=== PATIENT | female | born 1975 | race Caucasian/White ===

== ENCOUNTER 2022-06-18 13:13 | Emergency (ER) | payer BC, SELFPAY ==
[2022-06-18 13:30] VITALS: BP 124/103; PULSE 70; RESP 16; O2SAT 97; BMI 19.7
--- NOTE | 2022-06-18 13:49 | ED_ITS ---
HPI - Headache General Chief Complaint: Headache/Migraine Stated Complaint: Migraine Time Seen by Provider: 06/18/22 13:19 History of Present Illness HPI Narrative: This 46-year-old female comes in reporting migraine headache that began 3 days ago. She states that she gets migraines occasionally and this 1 is not responding to medications she uses at home. She did use Imitrex without any relief. She denies having any neurologic deficits. She does have sensitivity to light and some nausea but has not had any vomiting. She states that she has been unable to sleep at night because of the headache pain. Related Data Home Medications Medication Instructions Recorded Confirmed lisinopril 20 2 tab PO DAILY 06/18/22 06/18/22 mg-hydrochlorothiazide 25 mg tablet propranolol 120 mg capsule,24 120 mg PO Q24H 06/18/22 06/18/22 hr,extended release sumatriptan succinate 50 mg tablet 50 mg PO Q2H 06/18/22 06/18/22 Previous Rx's Medication Instructions Recorded ketorolac 10 mg tablet 10 mg PO Q8H 5 days #15 tabs 06/18/22 Allergies Allergy/AdvReac Type Severity Reaction Status Date / Time Penicillins Allergy Severe Anaphylaxis Verified 06/18/22 13:29 Review of Systems Status of ROS: Reports: 10 or more systems reviewed and unremarkable except as noted in History and below Narrative: Constitutional: No fevers, no weight gain or loss. Eyes: No discharge. No vision changes. HENT: No congestion, no sore throat, no ear pain. Cardiovascular: No chest pain, no palpitations. Respiratory: No shortness of breath, no wheezes, no cough. Gastrointestinal: No abdominal pain, no vomiting, no diarrhea. She reports nausea. Genitourinary: No dysuria, no hematuria. Musculoskeletal: Normal range of motion. Skin: No rashes, no pruritis. Neurological: No dizziness, weakness, sensory change, speech change. Light sensitivity. Endo/Heme/Allergies: No bruising or bleeding. No polydipsia. Pysch: no suicidality, no anxiety, no insomnia. All other systems reviewed and are negative. PFSH PFS Social History Smoking Status: Former smoker Second hand tobacco smoke exposure: No How often do you have a drink containing alcohol: monthly or less How often do you have six or more drinks on one occasion: Never AUDIT-C Alcohol total score: 1 Non-prescribed substance use: denies use service: No Exam Narrative: Exam Narrative: Constitutional: Well-developed, well-nourished, no acute distress. HEENT: Normocephalic, atraumatic. Neck: Normal range of motion. Nontender. Supple. Heart: Regular. No murmurs. Normal rate. Intact distal pulses. Lungs: Clear to auscultation. No chest discomfort. No wheezes, rhonchi, or rales. Abdomen: Normal bowel sounds. Nontender. No rebound tenderness. Genitalia: Deferred. Back: No midline tenderness. Normal range of motion. Extremities: Normal range of motion. No injury. Skin: Intact. No rash. Warm. No erythema or pallor. Neurologic: No altered sensation. No weakness. Alert and oriented. Psychiatric: No suicidality. No anxiety or depression. No insomnia. Nursing notes and vitals signs are reviewed. Const: Vital Signs, click to edit/add: Vital Signs - 24 hr 06/18/22 13:30 Pulse Rate [Pulse Oximeter] 70 Respiratory Rate 16 Blood Pressure [Ri t Upper Arm] 124/103 H Pulse Oximetry 97 Oxygen Delivery Me thod Room Air Course Vital Signs Vital signs: Initial Vital Signs Temperature Source Temporal Artery Scan 06/18/22 13:30 Pulse Rate 70 06/18/22 13:30 Pulse Rhythm 06/18/22 13:30 Respiratory Rate 16 06/18/22 13:30 Blood Pressure 124/103 H 06/18/22 13:30 Blood Pressure Mean 110 06/18/22 13:30 Blood Pressure Position Sitting 06/18/22 13:30 Pulse Oximetry 97 06/18/22 13:30 Oxygen Delivery Method 06/18/22 13:30 Vital Signs Pulse Rate 70 06/18/22 13:30 Respiratory Rate 16 06/18/22 13:30 Blood Pressure 124/103 H 06/18/22 13:30 Pulse Oximetry 97 06/18/22 13:30 Oxygen Delivery Method 06/18/22 13:30 Pulse Rate 70 06/18/22 13:30 Respiratory Rate 16 06/18/22 13:30 Blood Pressure 124/103 H 06/18/22 13:30 Pulse Oximetry 97 06/18/22 13:30 Oxygen Delivery Method 06/18/22 13:30 MDM - Headache MDM Narrative Medical decision making narrative: This patient comes in with a typical migraine headache but yet is not improving with her normal home treatments. She is not showing any neurologic deficits or signs or symptoms of any more troubling cause for her headache. An IV was estab lished where she received Toradol 30 mg, Benadryl 50 mg, and Zofran 4 mg. This brought sufficient relief to her headache. She is okay to be discharged home. She did receive a prescription for some tablets of Toradol and a return to work note. Discharge Plan Discharge Clinical Impression: Migraine Condition: Improved Instructions: Migraine Headache (ED) Additional Instructions: Take medication as needed and indicated. Follow up with MD or return if worsening. Prescriptions: New ketorolac 10 mg tablet 10 mg PO Q8H 5 Days Qty: 15 0RF No Action sumatriptan succinate 50 mg tablet 50 mg PO Q2H Label Comments: TAKE 1 TABLET BY MOUTH NEEDED AT ONSET OF HEADACHE, MAY REPEAT EVERY 2 HOURS. MAX 200MG PER 24 HOURS. lisinopril-hydrochlorothiazide 20-25 mg tablet 2 tab PO DAILY Label Comments: TAKE 2 TABLETS BY MOUTH ONCE DAILY propranolol 120 mg capsule,extended release 24 hr 120 mg PO Q24H Label Comments: TAKE 1 CAPSULE BY MOUTH ONCE DAILY Follow Up/Referrals: Ashlee Preston MD [Primary Care Provider] - Stand Alone Forms: [email or web address] Info Instructions
[2022-06-18] MEDS: ONDANSETRON 2 MG/ML inj 4 MG IVP (14:12)
[2022-06-18] MEDS: KETOROLAC 30 MG/ML inj IVP (14:12)
[2022-06-18] MEDS: diphenhydrAMINE 50 MG/ML inj IVP (14:12)
[2022-06-18 15:30] VITALS: BP 129/95; PULSE 66; RESP 18; O2SAT 98
== END 2022-06-18 15:47 | disposition home or self-care (01) ==
PROVIDERS: Emergency Provider Emergency Medicine Emergency Medical Services; PCP Emergency Medicine
DX: G43.909 Migraine, unspecified, not intractable, without status migrainosus (principal)
CPT/HCPCS: 96374; 96375; 99284; J1200; J1885; J2405

== ENCOUNTER 2023-05-23 11:24 | Outpatient (CLI) | payer SELFPAY | END 2023-05-23 11:25 | disposition home or self-care (01) | LOC: LKVREF 11:26 | PROVIDERS: PCP Emergency Medicine; Visit Provider Emergency Medicine | DX: I10 Essential (primary) hypertension (principal) | CPT/HCPCS: 80048 ==

== ENCOUNTER 2024-02-07 11:47 | Outpatient (CLI) | payer SELFPAY | END 2024-02-07 11:48 | disposition home or self-care (01) | PROVIDERS: PCP Emergency Medicine; Visit Provider Emergency Medicine | DX: Z13.220 Encounter for screening for lipoid disorders (principal); I10 Essential (primary) hypertension | CPT/HCPCS: 80048; 80061 ==

== ENCOUNTER 2024-03-07 14:25 | Outpatient (CLI) | payer SELFPAY | END 2024-03-07 14:26 | disposition home or self-care (01) | LOC: NFLDREF 03-25 08:11 | PROVIDERS: PCP Emergency Medicine; Referring Provider Emergency Medicine; Visit Provider Emergency Medicine | DX: E87.5 Hyperkalemia (principal) | CPT/HCPCS: 84132 ==

== ENCOUNTER 2024-11-21 22:02 | Observation (INO) | payer MEDICAID, SELFPAY ==
[2024-11-21] VITALS (9 sets, daily range): BP systolic 107–136; BP diastolic 86–116; PULSE 77–86; RESP 18; O2SAT 95–98
--- OUTSIDE RECORDS SUMMARY | 2024-11-21 22:03 | XMS_ITS | Clinical Summary ---
Author Organization [email or web address] [facility] Address [place], [place] [address] Care Team Providers Care Master Control Operator Name Role Phone Ashlee Preston MD Primary Care Provider [phone] Allergies Active Allergy Reactions Criticality Noted Date Comments Codeine Itching 06/18/2007 Prochlorperazine Seizures 04/21/2005 Penicillins Anaphylaxis High 04/21/2005 Hydrocodone-Acetaminophen Vomiting 03/11/2013 Medications MEDROXYPROGESTER ONE (CONTRACEPTIVE) 150 MG/ML IM SUSP inject 1 milliliter (150 mg) by intramuscular route every 3 months 1 0 06/12/20 07 Active albuterol HFA (PRO-AIR,VENTOLI N,PROVENTIL) 90 mcg/actuation inhalerIndicatio ns:Cough Inhale 1 Puff by mouth every 4 hours if needed. 1 Inhaler 0 02/21/20 13 Active lisinopril (PRINIVIL; ZESTRIL) 20 mg tabletIndication s:Unspecified essential hypertension Take 2 tablets by mouth once daily. 180 tablet 3 04/08/20 13 Active triamcinolone (ARISTOCORT; KENALOG) 0.1 % creamIndications :Rash Apply topically to affected area(s) 3 times daily. To legs 1 Tube 0 04/08/20 13 Active hydrochlorothiaz america (HCTZ) 25 mg tablet Take 1 tablet by mouth once daily. 30 tablet 0 04/11/20 13 Active metoprolol (TOPROL XL) 50 mg Sustained-Releas e tabletIndication s:Unspecified essential hypertension Take 1 tablet by mouth once daily. 90 tablet 1 04/14/20 13 Active oxyCODONE-acetam inophen, 5-325 mg, (PERCOCET) per tablet Take 1-2 tablets by mouth every 4 hours if needed for Pain. Max acetaminophen dose: 4000mg in 24 hrs. 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 Tobacco use disorder 06/12/2007 Dysuria 06/28/2004 Unspecified disorder of urethra and urinary trac t 06/28/2004 SCREENING FOR MALIGNANT NEOPLASM, CERVIX 002 CALCULUS, URINARY NOS 05/01/2001 CONTRACEPTIVE PRESCRIPTION, ORAL AGENT 1 PYELONEPHRITIS, ACUTE NOS 04/03/2001 DISORDER, DEPRESSIVE NEC 03/20/2001 HYPERTENSION, ESSENTIAL NOS 03/20/2001 DIARRHEA NOS 03/20/2001 ABNORMAL FINDINGS, ELEVATED BP W/O HTN 1 VAGINITIS NOS 10/29/2000 RASH, OTH NONSPECIFIC SKIN ERUPTION 10/29/2000 ACL TEAR, LEFT KNEE Resolved Problems Problem Noted Date Diagnosed Date Resolved Date PYELONEPHRITIS 02/23/2004 03/08/2004 BACK ACHE 05/01/2001 SPRAIN/STRAIN, ANKLE 001 Immunizations Name Administration Dates Next Due Td (Age >=7 Years) 10/22/2006 Family History Medical History Relation Name Comments Hypertension Father Asthma Mother Diabetes Mother and asthma; sib lings also have asthma; Father- medical history unknown Relation Name Status Comments Father Mother Social History Tobacco Use Types Packs/Day Years Used Date Smoking Tobacco: Former Cigarettes Q uit: 06/20/2012 Smokeless Tobacco: Never Alcohol Use Standard Drinks/Week Comments Yes 1.7 (1 standard drink = 0.6 oz p ure alcohol) 6 drinks per month Social Connections Answer Date Recorded Frequency of Communication with Friends and Fami ly Not on file 10/22/2021 Financial Resource Strain Answer Date R ecorded Difficulty of Paying Living Expenses Not on file 10/22/2021 Difficulty of Paying Living Expenses Not on file 10/22/2021 Comments No Sex and Gender Information Value Date Recorded Sex Assigned at Not on file 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 Gender Identity Not on file Sexual Orientation Not on file Occupation Industry Job Start Date Job End Date Not on file Not on file Not on file Not on file 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 Not on file Not on file Obstetrics History Para Term AB IAB SAB Ectopic Multiple Livin g Live Births 0 0 0 0 0 0 0 0 0 0 Last Filed Vital Signs Vital Sign Reading Time Taken Comments Blood Pressure 146/104 04/17/2013 3:00 PM CDT Pulse 78 04/17/2013 3:00 PM CDT Temperature 36.3 C (97.4 F) 04/17/2013 12:59 PM CDT Respiratory Rate 18 04/17/2013 3:00 PM CDT Oxygen Saturation 98% 04/17/2013 3:00 PM CDT Inhaled Oxygen Concentration - - Weight 50 kg (110 lb 3.7 oz) 04/17/2013 10:21 AM CDT Height 170.2 cm (5' 7) 04/14/2013 3:11 PM CDT Body Mass Index 17.26 04/14/2013 3:11 PM CDT Plan of Treatment Health Maintenance Due Date Last Done Comments Tdap 1986 Depression screening for age 12+ 1987 HIV for age 15-65 1990 BMI (ht and wt on same day) for age 18+ 1993 Hepatitis C screening for age 18-79 1993 Tetanus booster 10/22/2016 10/22/2006 Colonoscopy through age 75 2020 Lipids for age 45-75 2020 10/19/2003, 10/19/2003, 05/01/2001 Mammogram for age 45-75 2020 Pap test for age 21-65 08/06/2022 9, 08/06/2019, 06/06/2012 ([facility] Additional history exists COVID-19 vaccine series ( season) 2024 Influenza for age 9-49 06/22/2024 Pneumococcal series for age 6-49 Aged Out No longer eligible based on patient's age to complete this topic Procedures Procedure Name Priority Date/Time Associated Diagnosis Comments SKEIN STRAIGHTENER THIN PREP PAP SCREEN IMAGED Routine 08/06/2019 7:40 AM CDT CHOLESTEROL,TOTAL Routine 10/19/2003 9:1 0 AM STAVE MACHINE TENDER from Last 3 Months or Most Recently Relevant to Health Maintenance Results * SKEIN STRAIGHTENER THIN PREP PAP SCREEN IMAGED (08/06/2019 7:40 AM CDT) Case Report Gynecologic Cytology Report Case: [id number] Authorizing Provider: Jose Miguel Sherman PA-C Collected: 08/06/2019 0740 Ordering Location: [facility] Received: 08/06/2019 1724 First Screen: Jamey Peoples Specimen: SKEIN STRAIGHTENER ThinPrep Vial Screening, Cervical/Vaginal 08/15/2019 2:33 PM CDT [facility] [place] [facility] INTERPRETATION/ RESULT NEGATIVE FOR INTRAEPITHELIAL LESION OR MALIGNANCY (NIL) (none) 08/15/2019 2:33 PM CDT [facility] IMEN ADEQUACY Satisfactory for evaluation Endocervical component present 08/15/2019 2:33 PM CDT [facility] HPV REQUEST HPV and PAP 08/15/2019 2:33 PM CDT [facility] Last Pap Date 03/22/2016 08/15/2019 2:33 PM CDT [facility] Last Pap Result NIL 9 2:33 PM CDT [facility] Automated Review Successful 08/15/2019 2:33 PM CDT [facility] Comment:Specimen processed s uccessfully by automated rackman device, ThinPrep Imaging System, [employer] ANCILLARY TESTING SKEIN STRAIGHTENER HPV Ordered, Please see separate report 08/15/2019 2:33 PM CDT [facility] Note The pap test is a screening technique, not a diagnostic procedure. It is used primarily to screen for squamous cancers and precursor lesions. Published studies have shown that it is subject to both false negative and false positive results. The pap test should not be used as the sole means to diagnose or exclude pre-malignant and malignant lesions. Cytology is screened and interpreted at [facility], Central Laboratory - [address], [place] [address] and [facility] - [address]; [place] [address] and [facility] - [address]; [place] [address] [address] [facility] [address]; [place] [address] 08/15/2019 2:33 PM CDT [facility] Other (Cervical/Vagina l) 08/06/2019 7:40 AM CDT 08/06/2019 5:28 PM CDT Jose Miguel Sherman PA-C PATHOLOGY/CYTOLOGY Final Resu lt [facility] [address] [place] [address], [place] * CHOLESTEROL,TOTAL (10/19/2003 9:10 AM STAVE MACHINE TENDER) CHOLESTEROL,TOT AL 174 110 - 199 mg/dL 10/19/2003 9:10 AM STAVE MACHINE TENDER Narrative 03/30/2004 7:50 PM CDT Ordered by an unspecified provider. Other Clinical Staff CHEMISTRY Final Resul t from Last 3 Months or Most Recently Relevant to Health Maintenance Advance Directives * Full Code (Latest Code Status on File) Date Activated Date Inactivated Comments 04/17/2013 10:16 AM 04/17/2013 5:14 PM * Full Code Date Activated Date Inactivated Comments 04/11/2013 10:30 AM 04/11/2013 4:19 PM Care Teams Master Control Operator Relationship Specialty Start Date End Date Ashlee Preston MD [address] [place] [address] PCP - General Emergency Medicine 05/25/21
--- OUTSIDE RECORDS SUMMARY | 2024-11-21 22:04 | XMS_ITS | Clinical Summary ---
Author Organization [facility] Address [address] [place] [address] Care Team Providers Care Sweeper Operator Highways Name Role Phone Monique [place] MD Primary Care Provider [phone] Allergies Active Allergy Reactions Criticality Noted Date Comments Prochlorperazine Other (See Comments) 7 Grand mal seizure per patient Hydrochlorothiazide 07/30/2017 Penicillins Other (See Comments) 01/19/2016 Throat closes Medications metoclopramide (REGLAN) 10 MG tablet Take 1 tablet (10 mg) by mouth 3 times daily as needed (Nausea or Vomiting) 20 tablet 0 6 Active cholecalciferol 1000 UNITS TABSIndications:Vit diaz D deficiency 1,000 Units by Oral or Feeding Tube route daily 30 tablet 1 7 Active acetaminophen (TYLENOL) 325 MG tabletIndications:N ontraumatic subcortical hemorrhage of right cerebral hemisphere (H),Cerebrovascular accident (CVA) due to embolism of other cerebral artery (H) Take 1 tablet (325 mg) by mouth every 4 hours as needed for mild pain or fever 100 tablet 3 7 Active aspirin 81 MG chewable tabletIndications:C erebrovascular accident (CVA) due to embolism of other cerebral artery (H) Take 1 tablet (81 mg) by mouth daily 36 tablet 11 7 Active lisinopril (PRINIVIL/ZESTRIL) 40 MG tabletIndications:C erebrovascular accident (CVA) due to embolism of other cerebral artery (H),Nontraumatic subcortical hemorrhage of right cerebral hemisphere (H) 1 tablet (40 mg) by Oral or Feeding Tube route daily 30 tablet 11 7 Active CHLORTHALIDONE PO Take 50 mg by mouth daily Active HYDROCHLOROTHIAZIDE PO Take 12.5 mg by mouth daily Active diltiazem (CARTIA XT) 240 MG 24 hr capsule Take 240 mg by mouth daily Active metoprolol (TOPROL-XL) 25 MG 24 hr tabletIndications:M alignant essential hypertension Take 1 tablet (25 mg) by mouth daily 30 tablet 7 Active oxyCODONE IR (ROXICODONE) 5 MG tabletIndications:C hronic nonintractable headache, unspecified headache type Take 1 tablet (5 mg) by mouth every 8 hours as needed for moderate to severe pain 12 tablet 7 Active Active Problems Problem Noted Date Diagnosed Date Headache 08/30/2017 Stroke (cerebrum) 07/20/2017 Intracerebral hemorrhage 06/19/2017 Social History Tobacco Use Types Packs/Day Years Used Date Smoking Tobacco: Never Assessed Alcohol Use Standard Drinks/Week Comments Yes 0 (1 standard drink = 0.6 oz pur e alcohol) Adolescent Education Answer Date Record ed Getting School Help Needed Not on file 07/29 Comments Unknown Sex and Gender Information Value Date Recorded Sex Assigned at Not on file 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 Gender Identity Not on file Sexual Orientation Not on file Last Filed Vital Signs Vital Sign Reading Time Taken Comments Blood Pressure 164/124 06/14/2019 4:24 PM CDT Pulse 74 06/14/2019 4:24 PM CDT Temperature 36.7 C (98.1 F) 06/14/2019 2:44 PM CDT Respiratory Rate 16 06/14/2019 4:24 PM CDT Oxygen Saturation 99% 06/14/2019 4:24 PM CDT Inhaled Oxygen Concentration - - Weight 56.7 kg (125 lb) 06/14/2019 2:44 PM CDT Height 165.1 cm (5' 5) 06/14/2019 2:44 PM CDT Body Mass Index 20.8 06/14/2019 2:44 PM CDT Plan of Treatment Not on file Insurance MEDICA CHOICE Advance Directives For more information, please contact: [phone] * Full Code (Latest Code Status on File) Date Activated Date Inactivated Comments 08/31/2017 12:05 PM 06/14/2019 2:30 PM * Full Code Date Activated Date Inactivated Comments 08/30/2017 7:29 PM 08/31/2017 12:05 PM * Full Code Date Activated Date Inactivated Comments 07/20/2017 3:39 PM 08/30/2017 7:29 PM * Full Code Date Activated Date Inactivated Comments 07/20/2017 1:32 AM 07/20/2017 3:39 PM * Full Code Date Activated Date Inactivated Comments 06/24/2017 12:58 PM 07/20/2017 1:32 AM Care Teams Sweeper Operator Highways Relationship Specialty Start Date End Date Monique Whitehead MD [facility] [address] [place] [address] PCP - General 07/20/17
--- OUTSIDE RECORDS SUMMARY | 2024-11-21 22:04 | XMS_ITS | Referral Summary ---
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
--- NOTE | 2024-11-21 22:13 | CRLHL7_ITS ---
For Patients: As a result of the Century Cures Act, medical imaging exams and procedure reports are released immediately into your electronic medical record. You may view this report before your referring provider. If you have questions, please contact your health care provider. Indication: Left-sided weakness, history of stroke Technique: Noncontrast CT through the head with multiplanar reformats Comparison: CT head performed 07/22/2018 Findings: Brain: No acute hemorrhage. No acute infarct. No significant mass effect or midline shift. No gross evidence of a mass lesion or cerebral edema. Mild chronic microvascular ischemic disease. Ventricles: No acute abnormality appreciated. Orbits, sinuses, mastoids: No acute abnormality appreciated. Mild sinus disease. Calvarium and soft tissues: No acute abnormality appreciated. Impression: No acute intracranial abnormality appreciated. Findings were communicated by telephone to Dr. Laguna at 2300 on 11/21/2024. Please note that all CT scans at this facility use dose modulation, iterative reconstruction, and/or weight-based dosing when appropriate to reduce radiation dose to as low as reasonably achievable. Dictated by Marcos Azar MD @ 11/21/2024 11:02:43 PM (Electronically Signed)
--- NOTE | 2024-11-21 22:13 | CRLHL7_ITS ---
For Patients: As a result of the Century Cures Act, medical imaging exams and procedure reports are released immediately into your electronic medical record. You may view this report before your referring provider. If you have questions, please contact your health care provider. INDICATION: Acute stroke. TECHNIQUE: CTA neck with contrast bolus tracking, 3D angiographic rendering using maximum intensity projection (MIP) and images permanently archived. FINDINGS: There is no significant carotid artery stenosis or dissection. There is no significant vertebral artery stenosis or dissection. The soft tissues of the neck are within normal limits. The cervical spine is in normal alignment. IMPRESSION: No significant carotid or vertebral artery stenosis or dissection. Please note that all CT scans at this facility use dose modulation, iterative reconstruction, and/or weight-based dosing when appropriate to reduce radiation dose to as low as reasonably achievable. Dictated by Akshat Granados MD @ 11/22/2024 11:11:40 AM (Electronically Signed)
--- NOTE | 2024-11-21 22:14 | CRLHL7_ITS ---
For Patients: As a result of the Century Cures Act, medical imaging exams and procedure reports are released immediately into your electronic medical record. You may view this report before your referring provider. If you have questions, please contact your health care provider. INDICATION: Acute stroke. TECHNIQUE: CTA head with contrast bolus tracking, 3D angiographic rendering using maximum intensity projection (MIP) and images permanently archived. FINDINGS: There is an irregularly shaped 6 millimeter left PCOM aneurysm that was not present on the MRA performed on 07/19/2017. There is otherwise normal opacification of the intracranial vasculature. There is no large vessel occlusion or significant intracranial stenosis. 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 This is a high-risk lesion that warrants embolization in the near future. We would be happy to manage this at the [facility] neurointerventional clinic if desired. This can be arranged by calling our coordinator at [phone]. Akshat Granados MD Neurointerventional Radiology [facility]: [phone] Please note that all CT scans at this facility use dose modulation, iterative reconstruction, and/or weight-based dosing when appropriate to reduce radiation dose to as low as reasonably achievable. Dictated by Akshat Granados MD @ 11/22/2024 11:10:30 AM (Electronically Signed)
--- OUTSIDE RECORDS SUMMARY | 2024-11-21 22:26 | XMS_ITS | Referral Summary ---
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
--- OUTSIDE RECORDS SUMMARY | 2024-11-21 22:26 | XMS_ITS | Clinical Summary ---
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 Gender Identity Not on file Sexual Orientation [...] 08/06/2022 9, 08/06/2019, 06/06/2012 ([facility] of [facility]), Additional history exists COVID-19 vaccine series ( season) 2024 Influenza for age 9-49 06/22/2024 Pneumococcal series for age 6-49 Aged Out No longer eligible based on patient's age to complete this topic Procedures Procedure Name Priority Date/Time Associated Diagnosis Comments CONTACT LENS FITTER THIN PREP PAP SCREEN IMAGED Routine 08/06/2019 7:40 AM CDT CHOLESTEROL,TOTAL Routine 10/19/2003 9:1 0 AM POUNDMASTER from Last 3 Months or Most Recently Relevant to Health Maintenance Results * CONTACT LENS FITTER THIN PREP PAP SCREEN IMAGED (08/06/2019 7:40 AM CDT) Case Report Gynecologic Cytology Report Case: [id number] Authorizing Provider: Jose Miguel Sherman PA-C Collected: 08/06/2019 0740 Ordering Location: [facility] Received: 08/06/2019 1720 First Screen: Jamey Peoples Specimen: CONTACT LENS FITTER ThinPrep Vial Screening, Cervical/Vaginal 08/15/2019 2:33 PM CDT [facility] INTERPRETATION/ RESULT NEGATIVE FOR INTRAEPITHELIAL LESION OR MALIGNANCY (NIL) (none) 08/15/2019 2:33 PM CDT [facility] IMEN ADEQUACY Satisfactory for evaluation Endocervical component present 08/15/2019 2:33 PM CDT [facility] HPV REQUEST HPV and PAP 08/15/2019 2:33 PM CDT [facility] Last Pap Date 03/22/2016 08/15/2019 2:33 PM CDT [facility] Last Pap Result NIL 9 2:33 PM CDT [facility] Automated Review Successful 08/15/2019 2:33 PM CDT [facility] Comment:Specimen processed s uccessfully by automated nurse anesthesia program director device, ThinPrep Imaging System, [employer] ANCILLARY TESTING CONTACT LENS FITTER HPV Ordered, Please see separate report 08/15/2019 2:33 PM CDT [facility] Note The pap test is a [...] lesions. Cytology is screened and interpreted at [facility], Central Laboratory - [address], [place] [address] and [facility] - [address]; [place] [address] and [facility] - [address]; [place] [address] and [facility] [address]; [place] [address] 08/15/2019 2:33 PM CDT [facility]-C ENTRAL LABORATORY Other (Cervical/Vagina l) 08/06/2019 7:40 AM CDT 08/06/2019 5:28 PM CDT Jose Miguel Sherman PA-C PATHOLOGY/CYTOLOGY Final Resu lt [facility]OR[facility]-CENTRAL LABORATORY [address] [place] [address], [place] * CHOLESTEROL,TOTAL (10/19/2003 9:10 AM POUNDMASTER) CHOLESTEROL,TOT AL 174 110 - 199 mg/dL 10/19/2003 9:10 AM POUNDMASTER Narrative 03/30/2004 7:50 PM CDT Ordered by [...] 10:30 AM 04/11/2013 4:19 PM Care Teams Cloth Napping Supervisor Relationship Specialty Start Date End Date Ashlee Preston MD [address] [place] [address] PCP - General Emergency Medicine 05/25/21
--- OUTSIDE RECORDS SUMMARY | 2024-11-21 22:26 | XMS_ITS | Clinical Summary ---
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
[2024-11-21 22:36] LABS: Basophils Absolute Auto 0.07 K/uL (0.00-0.30); Basophils Percent Auto 0.9 % (0.0-3.0); Eosinophils Absolute Auto 0.22 K/uL (0.00-0.50); Eosinophils Percent Auto 2.7 % (0.0-7.0); Hematocrit 43.4 % (33.0-51.0); Hemoglobin* 14.1 gm/dL (12.0-16.0); Immature Granulocytes Abs Auto 0.07 K/uL (0.00-0.30); Immature Granulocytes Pct Auto 0.9 %; Lymphocytes Absolute Auto 1.92 K/uL (0.90-2.90); Lymphocytes Percent Auto 23.8 % (20-44); Mean Corpuscular HGB Conc 33 gm/dL (32-36); Mean Corpuscular Hemoglobin 31 pg (26-34); Mean Corpuscular Volume 96 fL (80-100); Monocytes Percent Auto 8.2 % (0.0-11.0); Neutrophils Absolute Auto 5.13 K/uL (1.7-7.0); Neutrophils Percent Auto 63.5 % (42.0-72.0); Platelet Count* 318 K/uL (140-440); RDW Coefficient of Variation % 13.2 % (11.5-15.5); Red Blood Count 4.51 m/uL (4.00-5.20); White Blood Count* 8.07 K/uL (4.50-11.00)
[2024-11-21 22:36] LABS: Troponin, Point-of-Care* 0.01 ng/ml (0.01-0.04)
[2024-11-21 22:40] LABS: Slide Review Reflex No
[2024-11-21 22:41] LABS: Chloride* 99 mmol/L (96-114); Potassium* 3.8 mmol/L (3.6-5.1); Sodium* 138 mmol/L (135-149)
--- NOTE | 2024-11-21 22:43 | ED_ITS ---
HPI - General Adult General Date Seen: 11/21/24 Chief complaint: Neuro Symptoms/Altered Deficit Stated complaint: poss stroke Time Seen by Provider: 11/21/24 22:13 History of Present Illness HPI narrative: This is a 49-year-old female brought to the ER today by her with concern for headache and stroke symptoms. She does have a past history of migraine headaches and apparently has fairly frequent headaches. She also has a history of strokes, 1 at age 24, and 1 at age 42. She does not know all the details of her previous strokes but apparently had workup through the [facility] at the [facility]. Records indicate that she has had a previous half thalamic hemorrhage. She also apparently has a history of some lacunar infarcts. She also has a history of hypertension. She is a former smoker. Mild intermittent asthma. She is a former alcoholic. She does have frequent headaches. She has had a fairly bad diffuse headache this week, beginning Sunday or Sunday. She does have a long history of migraine so this is not necessarily unusual for her. She had her headache this evening. Her left for his job at 7:00 p.m.. She was neurologically at her baseline at that point. She developed symptoms of left-sided weakness and call ed her around 9:00 p.m.. He came home from work and brought her directly here to the ER. We know for sure her last known well time was 7:00 p.m.. Symptoms started sometime between 7 and 9, probably closer to 9:00 p.m.. She has symptoms of left arm and leg weakness. Also perhaps subtle left facial droop. feels that her speech is at baseline. She still has the headache. Vision is normal. No vomiting. No fever. No known head injury. During conversation with stroke neurologist, Dr. Rowe, she has access to some of the patient's old records. 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 Therefore she is not a candidate for IV thrombolytics. Also apparently has a history of poorly controlled hypertension dating back to age 16, tobacco use, former alcohol use. Also has had a lacunar infarcts in the past. Dr. Rowe does not have records from the patient stroke that occurred at age 24 but presumes it was probably an ischemic infarct. Related Data Previous Rx's ?Medication ?Instructions ?Recorded ketorolac 10 mg tablet 10 mg PO Q8H 5 days #15 tabs 06/18/22 amitriptyline 50 mg tablet 50 mg PO QHS #90 tabs 02/07/24 amlodipine 5 mg tablet 5 mg PO QDAY #90 tabs 02/07/24 epinephrine 0.3 mg/0.3 mL 0.3 mg (0.3 mL) IM .PRN PRN 02/07/24 injection, auto-injector (EpiPen anaphylaxis #2 ea 2-Bhaskar) lisinopril 20 2 tab PO DAILY #180 tabs 02/07/24 mg-hydrochlorothiazide 25 mg tablet propranolol 120 mg capsule,24 120 mg PO Q24H #90 caps 02/07/24 hr,extended release sumatriptan succinate 100 mg tablet See Rx Instructions PO .COMPLEX #9 02/07/24 tabs valacyclovir 500 mg tablet 500 mg PO BID #6 tabs 02/07/24 fluticasone 113mcg-salmeterol 1 inh inhalation BID #1 ea 02/13/24 14mcg/actuation breath act,powder sensor (AirAbakuso Digihaler) albuterol sulfate 90 mcg/actuation 2 puff inhalation Q4-6H PRN 02/22/24 aerosol inhaler shortness of breath or wheezing #8.5 grams montelukast 10 mg tablet 10 mg PO QDAY #90 tabs 05/26/24 Allergies Allergy/AdvReac Type Severity Reaction Status Date / Time Penicillins Allergy Severe Anaphylaxis Verified 02/07/24 11:08 venom-honey bee Allergy Severe Swelling Verified 02/07/24 11:08 of Lip/Tongue/Throat prochlorperazine Allergy Mild Seizure Verified 02/07/24 11:08 Quinolones Allergy Mild Unknown Verified 02/07/24 11:08 Theophyllines Allergy Mild Rash Uncoded 02/07/24 11:08 [facility] Medical History History of acute renal failure ?Z87.448 - Personal history of other diseases of urinary system (ICD-10) History of hemorrhagic cerebrovascular accident (CVA) without residual deficits ?Z86.73 - Personal history of transient ischemic attack (TIA), and cerebral infarction without residual deficits (ICD-10) Former smoker ?Z87.891 - Personal history of nicotine dependence (ICD-10) History of alcoholism ?F10.21 - Alcohol dependence, in remission (ICD-10) Surgical History History of tubal ligation ?Z98.51 - Tubal ligation status (ICD-10) History of repair of anterior cruciate ligament ?Z98.890 - Other specified postprocedural states (ICD-10) History of bilateral inguinal hernia repair ?Z98.890 - Other specified postprocedural states (ICD-10) ?Z87.19 - Personal history of other diseases of the digestive system (ICD-10) History of appendectomy ?Z90.49 - Acquired absence of other specified parts of digestive tract (ICD- 10) Family History Father High blood pressure Brain aneurysm Social History Smoking Status: Former smoker Second hand tobacco smoke exposure: No How often do you have a drink containing alcohol: monthly or less How often do you have six or more drinks on one occasion: Never AUDIT-C Alcohol total score: 1 Non-prescribed substance use: denies use service: No Exam Narrative: Exam Narrative: A- patent. Speaking clearly. Phonation normal. No stridor. B- breathing easily. Lung sounds clear and equal. Oxygen saturation normal on room air C- no active bleeding. Blood pressure stable. Symmetric pulses and cap refill in 4 extremities. D- alert and oriented x3. GCS 15. No focal deficits. Constitutional: Appears well-developed and well-nourished. Alert. Conversant. Non toxic. HENT: Head: Atraumatic. Nose: Nose normal. Mouth/Throat: Oral mucosa is clear and moist. no trismus. Pharynx normal. Tonsils symmetric. No tonsillar enlargement, erythema, or exudate. Eyes: Conjunctivae normal. EOM normal. Pupils equal, round, and reactive to light. No scleral icterus. Neck: Normal range of motion. Neck supple. No tracheal deviation present. Cardiovascular: Normal rate, regular rhythm. No gallop. No friction rub. No murmur heard. Symmetric radial artery pulses Pulmonary/Chest: Effort normal. No stridor. No respiratory distress. No wheezes. No rales. No rhonchi . No tenderness. Abdominal: Soft. Bowel sounds normal. No distension. No mass. No tenderness. No rebound. No guarding. Musculoskeletal: RUE: Normal range of motion. No tenderness. No deformity LUE: Normal range of motion. No tenderness. No deformity RLE: Normal range of motion. No edema. No tenderness. No deformity LLE: Normal range of motion. No edema. No tenderness. No deformity Lymph: No cervical adenopathy. Neurological: Mental status normal. Attention normal. Alert and oriented x3. GCS 15. Memory normal. Speech fluent. Cognition normal. Cranial Nerves intact II-XII except I did not formally test gag or visual acuity. EOMI. Palate elevates symmetrically and tongue protrudes in the midline. Strength: Strength 5/5 on the right side including the deltoid, biceps, triceps, plant supervisor, hip flexors, quad, hamstring, gastrocnemius. Strength is 4+/5 on the left plant supervisor, biceps, triceps. She can lift her left arm and hold it against gravity with some drift. She has 4/5 strength on the left lower extremity. She is barely able to lift her left leg off the mattress and can only hold it for about 2nd against gravity. Finger to nose and coordination normal. Gait not assessed due to left-sided weakness. NIHSS- 7 upon arrival. Skin: Skin is warm and dry. No rash noted. No pallor. Normal capillary refill. Psychiatric: Normal mood. Anxious and tearful. Worried about her recurrent left-sided weakness. intently at her side. Const: Vital Signs, click to edit/add: Vital Signs - 24 hr 11/21/24 22:09 11/21/24 22:11 11/21/24 22:34 Pulse Rate 85 Pulse Rate [Pulse Oximeter] 86 Respiratory Rate 18 Blood Pressure 136/116 H Blood Pressure [Ri ght Upper Arm] 136/116 H Pulse Oximetry 98 98 Oxygen Delivery Me thod Room Air 11/21/24 22:35 11/21/24 22:42 11/21/24 22:45 Pulse Rate 84 78 81 Pulse Rate [Pulse Oximeter] Respiratory Rate Blood Pressure 120/86 109/87 Blood Pressure [Ri ght Upper Arm] Pulse Oximetry 95 97 96 Oxygen Delivery Me thod 11/21/24 22:52 11/21/24 23:00 11/21/24 23:02 Pulse Rate 80 77 79 Pulse Rate [Pulse Oximeter] Respiratory Rate Blood Pressure 107/94 H 111/87 Blood Pressure [Ri ght Upper Arm] Pulse Oximetry 96 96 97 Oxygen Delivery Me thod Course Course ED Course: Code stroke was activated nurses at the time of triage. Immediately room to ER room 8 Patient seen in ER room 8 upon arrival. A performed initial history and physical exam and the patient was sent or stat noncontrast head CT as well as CT angiogram. Phone consultation with Stroke Neurology, Dr. Rowe from [facility]. Using her EMR she was able to get some of the old records from the patient's previous strokes which were actually treated in the [facility]. She did have a right thalamic infarct in 2017. Therefore the patient is not a candidate for IV thrombolytics. Dr. Rowe agrees with obtaining CT angiogram because if there is a large vessel occlusion she may be a candidate for intra-arterial clot retrieval. Recheck-by review of the head CT shows no acute intracranial hemorrhage. I do think there is some old encephalomalacia, possibly from her previous hemorrhage . I do not see any hydrocephalus. Reevaluation(s) Reevaluation #1: Recheck-discussed again with Stroke Neurology. She has been able to review the imaging with Radiology. Head CT is negative. With her history, or concerned about a possible recurrent acute ischemic stroke. Differential would also include possible migraine with neurologic for the symptoms. Dr. Rowe recommends admission here in [place]. MRI tomorrow. I confirmed with our radiology department that MRI is available tomorrow, on the weekend. Dr. Rowe recommends permissive hypertension but limiting systolic blood pressure below 180 due to the risk of potential recurrent hemorrhage. Also aspirin 81 mg. Hold off on full-dose aspirin or other antiplatelet agents because of the patient's history of intracranial hemorrhage. 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 This is not thought to be related to her headache or her acute neurologic symptoms. Does not require immediate intervention. Dr. Rowe recommends urgent but not emergent follow-up in the outpatient setting (next few weeks) with interventional radiology. Reevaluation #2: Recheck discussed with our hospitalist, Dr. Begum who agrees to admit. Recheck the patient. She sitting up in bed. Headache still present but improving. Still has left arm weakness, more significant left leg weakness. Discussed workup so far and plan of care with the patient and her . Also discussed the incidental 5 mm left ICA aneurysm and need for follow-up. They verbalized understanding. Vital Signs Vital signs: Initial Vital Signs Pulse Rate 86 11/21/24 22:09 Respiratory Rate 18 11/21/24 22:09 Blood Pressure 136/116 H 11/21/24 22:09 Blood Pressure Mean 122 H 11/21/24 22:09 Blood Pressure Position Supine 11/21/24 22:09 Pulse Oximetry 98 11/21/24 22:09 Oxygen Delivery Method Room Air 11/21/24 22:09 Vital Signs Pulse Rate 86 11/21/24 22:09 Respiratory Rate 18 11/21/24 22:09 Blood Pressure 136/116 H 11/21/24 22:09 Pulse Oximetry 98 11/21/24 22:09 Oxygen Delivery Method Room Air 11/21/24 22:09 Pulse Rate 79 11/21/24 23:02 Respiratory Rate 18 11/21/24 22:09 Blood Pressure 111/87 11/21/24 23:02 Pulse Oximetry 97 11/21/24 23:02 Oxygen Delivery Method Room Air 11/21/24 22:09 Medications Administered Medications: Discontinued Medications Generic Name Dose Route Start Last Admin Trade Name Bhaskarq PRN Reason Stop Dose Admin Aspirin 81 mg 11/21/24 23:12 11/21/24 23:22 Aspirin 81 Mg Tablet Ec PO 11/21/24 23:13 81 mg ONCE ONE Administration Diphenhydramine HCl 12.5 mg 11/21/24 22:13 11/21/24 22:55 Diphenhydramine 50 Mg/Ml Inj IVP 11/21/24 22:14 12.5 mg ONCE ONE Administration Sodium Chloride 500 mls @ 500 mls/hr 11/21/24 22:13 11/22/24 00:11 0.9 % Sodium Chloride 500 Ml IV 11/21/24 23:12 Infused .Q1H ONE Infusion Metoclopramide HCl 10 mg 11/21/24 22:13 11/21/24 22:59 Metoclopramide Hcl 5 Mg/Ml Inj IVP 11/21/24 22:14 10 mg ONCE ONE Administration Medical Decision Making MDM Narrative Medical decision making narrative: Pleasant but unfortunate 49-year-old female with a history of previous strokes including a thalamic hemorrhage 7 years ago presenting to the ER today with headache ongoing for about 5 days of headache and neurologic symptoms ongoing for about an hour and half or 2 hours prior to arrival. Presentation is concerning for stroke. Stroke team activation was triggered. Stat noncontrast CT and imaging were obtained. Neurology consultation. Given history of ICH she is not a candidate for thrombolytics. She will require admission for neurologic monitoring, MRI (which is not available here in [place] until tomorrow morning). In discussion with Stroke Neurology she will receive baby aspirin for stroke prophylaxis. No other antiplatelets due to risk of ICH. Allow permissive hypertension only up to systolic of 180. Treat if above that to minimize the risk of recurrent ICH. Differential would also include migraine phenomena. Treated her headache here in the ER with some improvement in the pain but no improvement her left-sided weakness. EKG shows sinus rhythm. CBC normal. BMP normal. We did check COVID and influenza swab to look for alternative explanations for headache and is normal. She does not have any cough or shortness of breath. Lab Data Labs: Lab Results 11/21/24 11/21/24 11/21/24 Range/Units 22:14 22:15 22:33 WBC 8.07 (4.50-11.00) K/uL RBC 4.51 (4.00-5.20) m/uL Hgb 14.1 (12.0-16.0) gm/dL Hct 43.4 (33.0-51.0) % MCV 96 (80-100) fL MCH 31 (26-34) pg MCHC 33 (32-36) gm/dL RDW Coeff of Tj 13.2 (11.5-15.5) % Plt Count 318 (140-440) K/uL Neut % (Auto) 63.5 (42.0-72.0) % Lymph % (Auto) 23.8 (20-44) % [place] % (Auto) 8.2 (0.0-11.0) % Eos % (Auto) 2.7 (0.0-7.0) % Baso % (Auto) 0.9 (0.0-3.0) % Neut # (Auto) 5.13 (1.7-7.0) K/uL Lymph # (Auto) 1.92 (0.90-2.90) K/uL [place] # (Auto) 0.70 (0.00-0.90) K/UL Eos # (Auto) 0.22 (0.00-0.50) K/uL Baso # (Auto) 0.07 (0.00-0.30) K/uL Abs Immat Gran (auto) 0.07 (0.00-0.30) K/uL Imm/Tot Granulo (auto) 0.9 % INR 0.95 (0.91-1.10) Sodium 138 (135-149) mmol/L Potassium 3.8 (3.6-5.1) mmol/L Chloride 99 (96-114) mmol/L Carbon Dioxide 24 (20-32) mmol/L Anion Gap 15 (7-15) mEq/L BUN 13 (5-24) mg/dL Creatinine 1.0 (0.5-1.5) mg/dL Estimated GFR 69 ml/min Glucose 114 (60-115) mg/dL Calcium 9.7 (8.4-10.6) mg/dL SARS-CoV-2 (PCR) Negative SARS-CoV-2 (Negative) Influenza Type A (PCR) Negative PCR FLU A (Negative) Influenza Type B (PCR) Negative PCR FLU B (Negative) POC Troponin I 0.01 (0.01-0.04) ng/ml Imaging Data CT scan - head: Attestation: I have reviewed the pertinent imaging results. My impression: No acute bleed. Radiologist's impression: Impression: No acute intracranial abnormality appreciated. Findings were communicated by telephone to Dr. Laguna at 2300 on 11/21/2024. CTA head and neck: Attestation: I have reviewed the pertinent imaging results. Radiologist's impression: Preliminary report, full report to follow. Impression: CTA head: There is a new 5 millimeter left ICA terminus/PCOM aneurysm, not present on 2017 examination. Referral for endovascular treatment recommended. No large vessel occlusion, high-grade stenosis, or additional aneurysm is appreciated. CTA neck: No large vessel occlusion, high-grade stenosis, aneurysm/pseudoaneurysm, or dissection. ECG Data Attestation: I personally reviewed and interpreted this ECG as follows: Interpretation: Normal sinus rhythm Rate: 80 IL: 204. First degree AV block QRS axis: Normal axis. ST segment/T wave: No ST segment elevation or depression QTc: 452 Discharge Plan Discharge Clinical Impression: Stroke, Acute left-sided muscle weakness, Aneurysm of left internal carotid artery
[2024-11-21 22:44] LABS: Anion Gap 15 mEq/L (7-15); Carbon Dioxide* 24 mmol/L (20-32); Estimated Glomerular Filt Rate 69 ml/min
[2024-11-21 22:45] LABS: Blood Urea Nitrogen* 13 mg/dL (5-24); Calcium* 9.7 mg/dL (8.4-10.6); Glucose* 114 mg/dL (60-115)
[2024-11-21 22:52] LABS: INR 0.95 (0.91-1.10); Prothrombin Time 13.2 Seconds
[2024-11-21] MEDS: 0.9 % SODIUM CHLORIDE 500 ML 500 ML IV (22:55)
[2024-11-21] MEDS: diphenhydrAMINE 50 MG/ML inj 12.5 MG IVP (22:55)
[2024-11-21] MEDS: METOCLOPRAMIDE HCL 5 MG/ML INJ 10 MG IVP (22:59)
[2024-11-21] MEDS: ASPIRIN 81 MG TABLET EC PO (23:22)
[2024-11-21 23:28] LABS: PCR FLU A Negative PCR FLU A (Negative); PCR FLU B Negative PCR FLU B (Negative); SARS PCR* Negative SARS-CoV-2 (Negative)
[2024-11-22] VITALS (10 sets, daily range): BP systolic 95–130; BP diastolic 68–96; PULSE 61–96; RESP 16–18; TEMP -14.4–36.8; O2SAT 94–98; BMI 22.9
--- NOTE | 2024-11-22 00:04 | CRLHL7_ITS ---
For Patients: As a result of the Century Cures Act, medical imaging exams and procedure reports are released immediately into your electronic medical record. You may view this report before your referring provider. If you have questions, please contact your health care provider. Indication: Left hemiparesis. Technique: Multiplanar, multisequence MRI of the brain was performed without and with intravenous contrast. Contrast: 12 cc Dotarem. Comparison: CT head 11/21/2024. MR brain 10/02/2017. Findings: The corpus callosum, pituitary gland and clivus appear intact. Mild degenerative change visualized upper cervical spine. Mild low-lying cerebellar tonsils. There is no restricted diffusion. No intracranial hemorrhage. The ventricles are proportionate to the cerebral sulci. The 4th ventricle appears midline. The basal cisterns appear patent. No abnormal extra-axial fluid collection identified. Mild parenchymal volume loss. Moderate scattered T2 FLAIR hyperintense foci within the subcortical and periventricular white matter, favored to represent chronic ischemic microvascular disease. Stable hemosiderin deposition with encephalomalacia and gliosis of the right thalamus, extending into the walters radiata. There is no intracranial mass, abnormal mass-effect or midline shift identified. No abnormal enhancement. Mild paranasal sinus mucosal disease. Impression: 1. No acute/subacute infarct. 2. Stable moderate chronic ischemic microvascular disease. 3. Stable sequela of chronic hemorrhagic insult involving the right thalamus, extending into the walters radiata. Dictated by Jesus Alberto Prado MD @ 11/22/2024 10:16:52 AM (Electronically Signed)
--- NOTE | 2024-11-22 00:06 | P.IMHP_ITS ---
Hospitalist- H&P: HPI History of Present Illness Date Seen: 11/22/24 Chief complaint: poss stroke Narrative: Mary Gotti is a 49 year old woman presents to the emergency department today accompanied by her with complaint of headache and new left-sided weakness. Longstanding history of migraine headaches. Indicates she has migraine headaches frequently. Also longstanding history of strokes. First stroke occurred at age 24 presumably ischemic. Second major stroke occurred at age 42, hemorrhagic thalamic stroke. Is not anticoagulated or on antithrombotic therapy because of the history of the previous hemorrhagic thalamic stroke. Also has h istory of other lacunar strokes. Has longstanding hypertension. History of tobacco use disorder, no longer actively smoking. History of alcohol use disorder, rarely consumes alcoholic beverages any longer. Headache since Sunday of this week. Not necessarily unusual for her. Her left for work around 7 this evening, at which time she was neurologically at baseline. Subsequently she developed left-sided weakness and called her around 9 this evening. Left leg weakness is greater than the left arm weakness. Also has slight left facial droop with mild slurred speech. She thinks perhaps at the onset she might have had some blurred vision but that has since resolved. No other signs or symptoms. No recent trauma, injury, illness, fever. Review of Systems Status of ROS: Reports: 6 or more systems reviewed and unremarkable except as noted in History and below [facility] Medical History History of acute renal failure ?Z87.448 - Personal history of other diseases of urinary system (ICD-10) History of hemorrhagic cerebrovascular accident (CVA) without residual deficits ?Z86.73 - Personal history of transient ischemic attack (TIA), and cerebral infarction without residual deficits (ICD-10) Former smoker ?Z87.891 - Personal history of nicotine dependence (ICD-10) History of alcoholism ?F10.21 - Alcohol dependence, in remission (ICD-10) Surgical History History of tubal ligation ?Z98.51 - Tubal ligation status (ICD-10) History of repair of anterior cruciate ligament ?Z98.890 - Other specified postprocedural states (ICD-10) History of bilateral inguinal hernia repair ?Z98.890 - Other specified postprocedural states (ICD-10) ?Z87.19 - Personal history of other diseases of the digestive system (ICD-10) History of appendectomy ?Z90.49 - Acquired absence of other specified parts of digestive tract (ICD- 10) Family History Father High blood pressure Brain aneurysm Social History Smoking Status: Former smoker Second hand tobacco smoke exposure: No How often do you have a drink containing alcohol: monthly or less How often do you have six or more drinks on one occasion: Never AUDIT-C Alcohol total score: 1 Non-prescribed substance use: denies use service: No Meds Home Medications and Allergies Allergies Allergy/AdvReac Type Severity Reaction Status Date / Time Penicillins Allergy Severe Anaphylaxis Verified 02/07/24 11:08 venom-honey bee Allergy Severe Swelling Verified 02/07/24 11:08 of Lip/Tongue/Throat prochlorperazine Allergy Mild Seizure Verified 02/07/24 11:08 Quinolones Allergy Mild Unknown Verified 02/07/24 11:08 Theophyllines Allergy Mild Rash Uncoded 02/07/24 11:08 Exam Narrative: Exam Narrative: I 1st examined her in the emergency department. Her sitting next to her. She appears comfortable no acute distress. From the, articulate, cooperative. Alert and oriented x4. Class co coma scale 15. Vision and hearing are normal. External auditory canals are clear tympanic membranes are normal. Midline nasal septum. Oropharynx benign and symmetric. Dentition in fair repair. Tongue protrudes midline. Normal gag reflex. Voice seems mildly slurred. Patient unaware. states he thinks this is new. Conjugate gaze. Extraocular muscles are intact. Pupils are equally round and reactive to light and accommodation. No icterus or conjunctival injection. Neck is supple. Midline trachea. No carotid bruits. No JVD or hepatic jugular reflux. Lungs are clear to auscultation without wheezing, rhonchi, or rales. Chest wall excursions are full. No CVA tenderness. Spine is midline. Heart tones with regular rhythm, normal S1-S2, without murmur, gallop, rub. PMI not laterally displaced. Abdomen is thin with active bowel sounds, soft, nontender. No rebound or guarding. No organomegaly or masses. Extremities without edema. Diffusely hyperactive left deep tendon reflexes in upper and lower extremities. Does not have a Babinski. Strength testing of right upper and lower extremities is normal. Strength testing of left upper extremity is mildly but certainly perceptibly weaker than on the right. Strength testing of left lower extremity is mildly but certainly perceptibly weaker than on the right. Rapid alternating movement on the left is more clumsy than on the right. Does have mild drifting on the left compared to the right upper extremity. Const: Vital Signs, click to edit/add: Vital Signs - 24 hr 11/21/24 22:09 11/21/24 22:11 11/21/24 22:34 Pulse Rate 85 Pulse Rate [Pulse Oximeter] 86 Respiratory Rate 18 Blood Pressure 136/116 H Blood Pressure [Ri ght Upper Arm] 136/116 H Pulse Oximetry 98 98 Oxygen Delivery Me thod Room Air 11/21/24 22:35 11/21/24 22:42 11/21/24 22:45 Pulse Rate 84 78 81 Pulse Rate [Pulse Oximeter] Respiratory Rate Blood Pressure 120/86 109/87 Blood Pressure [Ri ght Upper Arm] Pulse Oximetry 95 97 96 Oxygen Delivery Me thod 11/21/24 22:52 11/21/24 23:00 11/21/24 23:02 Pulse Rate 80 77 79 Pulse Rate [Pulse Oximeter] Respiratory Rate Blood Pressure 107/94 H 111/87 Blood Pressure [Ri ght Upper Arm] Pulse Oximetry 96 96 97 Oxygen Delivery Me thod Hospitalist - H&P: Result Labs Labs: Short CBC 11/21/24 Range/Units 22:15 WBC 8.07 (4.50-11.00) K/uL Hgb 14.1 (12.0-16.0) gm/dL Hct 43.4 (33.0-51.0) % Plt Count 318 (140-440) K/uL BMP 11/21/24 22:15 Sodium 138 Potassium 3.8 Chloride 99 Carbon Dioxide 24 BUN 13 Creatinine 1.0 Glucose 114 Calcium 9.7 ECG ECG interpretation date: 11/21/24 Interpretation: Normal sinus rhythm Imaging CT scan - head: Radiologist's impression: No acute stroke. CT angiogram of head and neck: Radiologist's impression: Radiologist report not yet available. Our physician in the emergency department spoke with the radiologist and was informed that there is no major vessel stenosis. Incidentally noted was a left internal carotid artery 5 mm aneurysm that will require additional outpatient assessment and possible intervention. Assessment and Plan Assessment and plan (1) Acute left-sided muscle weakness: Problem comment: - differential diagnosis include new stroke, migraine equivalent, expression of prior hemorrhagic stroke - Dr. Rowe, stroke neurologist, recommended aspirin 81 mg daily, not a candidate for thrombolytics because of prior hemorrhagic stroke, obtain MR scan of the brain and reconsult in the morning after results are available. - admit for observation, telemetry, echocardiogram, serial neurologic assessments, physical therapy, occupational therapy Status: Acute (2) Aneurysm of left internal carotid artery: Problem comment: - Dr. Rowe, stroke neurologist, recommends outpatient assessment for this for due consideration for possible embolization of this before it ruptures Status: Acute (3) History of hemorrhagic cerebrovascular accident (CVA) without residual deficits: Status: Acute (4) Essential hypertension: Problem comment: Dxed teenage years, history of medication non-compliance, sp 2 strokes due to HTN 07/08 ECHO 12/10 showed mild concentric LVH - Dr. Rowe recommends trying to keep systolic blood pressure less than 180 mmHg for now Status: Acute (5) Chronic migraine: Problem comment: Amitriptyline, propanolol Status: Acute (6) Cerebrovascular accident (CVA): Problem comment: Ischemic stroke putamen 06/2017, hemorrhagic stroke thalamic 05/2017, and left sided putamen stroke/left sided weakness related to ischemic stroke due to small-vessel occlusion 07/08 Status: Acute (7) Stage 2 hypertension: Problem comment: Renal Ultraound -20 17 while hospitalized [facility], adosterone level normal Status: Acute (8) Former smoker: Problem comment: quit 2015 Status: Acute (9) History of alcoholism: Problem comment: Quit drinking greater than 3 years ago Status: Acute (10) Hypertriglyceridemia: Problem comment: Recommend treatment due to history of stroke Status: Acute Plan 1. Reviewed impression with patient and 2. Discuss recommendations with patient and 3. Answered their questions 4. They are agreeable with above stated plans and recommendations Total Time Spent Total Time Spent: 70 minutes
[2024-11-22] MEDS: ACETAMINOPHEN 325 MG TABLET 650 MG PO ×2 (00:40→06:11)
[2024-11-22] MEDS: AMITRIPTYLINE 25 MG TABLET 50 MG PO (00:40)
[2024-11-22] MEDS: OXYCODONE 5 MG TABLET PO ×2 (03:08→10:20)
--- NOTE | 2024-11-22 06:16 | PC.NURSE ---
Pt arrived to the floor at 0000 via wheelchair with . pt A&O pleasant and cooperative. pt complains of migraine rating pain 6-8/10 overnight. see eMAR for interventions. VSS. left sided weakness recorded. left sided weakness at baseline. pt reports weakness at baseline. neuros otherwise remarkable. up w/ SBA to the bathroom. pt denies nausea overnight. using call light appropriately.
[2024-11-22 07:03] LABS: Cholesterol* 184 mg/dL (90-199)
[2024-11-22 07:04] LABS: HDL Cholesterol* 70 mg/dL (>=50); LDL Cholesterol Calculated 81 mg/dL (<100); Triglycerides* 165 mg/dL (40-149)
[2024-11-22] MEDS: AMLODIPINE 5 MG TABLET PO (08:56)
[2024-11-22] MEDS: hydroCHLOROthiazide 25 MG TABLET 50 MG PO (08:56)
[2024-11-22] MEDS: lisinopriL 20 MG TABLET 40 MG PO (08:56)
[2024-11-22] MEDS: MONTELUKAST 10 MG TABLET PO (08:57)
[2024-11-22] MEDS: SODIUM CHLORIDE 0.9 % (FLUSH) 10 ML SYRINGE 5 ML IVF (08:57)
[2024-11-22] MEDS: ASPIRIN 81 MG TABLET EC PO (08:57)
[2024-11-22] MEDS: METOCLOPRAMIDE HCL 5 MG/ML INJ 10 MG IVP (12:50)
[2024-11-22] MEDS: ACETAMINOPHEN 500 MG TABLET 1000 MG PO (12:50)
[2024-11-22] MEDS: dexAMETHasone 10 MG/ML inj IVP (14:17)
--- NOTE | 2024-11-22 15:04 | PM.DS1 ---
DS: Providers Provider Date Seen: 11/22/24 Date of admission: 11/21/24 23:46 Primary care physician: Ashlee Preston Admitting Clinician: Adriel Begum MD Consults: 11/21/24 23:59 Consult to Physical Therapy [CONS] Routine Comment: Reason(s) for PT Consult:: Evaluate and Treat Any Restrictions?:: No Restrictions 11/22/24 00:02 Consult to Occupational Therapy [CONS] Routine Comment: Reason(s) for OT Consult:: Evaluate and Treat Any Restrictions?:: No Restrictions Attending Physician on discharge: Tiffanie Soto MD DS: Diagnosis Discharge Diagnosis (1) Acute left-sided muscle weakness: Status: Acute Problem details: - Differential diagnosis include migraine equivalent, expression of prior hemorrhagic stroke (Stroke recrudescence). Acute stroke was ruled out - Dr. Rowe, stroke neurologist, recommended aspirin 81 mg daily, not a candidate for thrombolytics because of prior hemorrhagic stroke. - MR scan of the brain did not show any acute or subacute stroke. - echocardiogram unremarkable -physical therapy, occupational therapy as an outpatient. -November 22 neuro tele are okay with patient going home. (2) Aneurysm of left internal carotid artery: Status: Acute Problem details: - Dr. Rowe, stroke neurologist, recommends outpatient assessment for this for due consideration for possible embolization of this before it ruptures (3) History of hemorrhagic cerebrovascular accident (CVA) without residual deficits: Status: Chronic (4) Essential hypertension: Status: Acute Problem details: Dxed teenage years, history of medication non-compliance, sp 2 strokes due to HTN 07/08 ECHO 12/10 showed mild concentric LVH - Dr. Rowe recommends trying to keep systolic blood pressure less than 180 mmHg for now (5) Chronic migraine: Status: Acute Problem details: Amitriptyline, propanolol (6) Cerebrovascular accident (CVA): Status: Acute Problem details: Ischemic stroke putamen 06/2017, hemorrhagic stroke thalamic 05/2017, and left sided putamen stroke/left sided weakness related to ischemic stroke due to small-vessel occlusion 07/08 (7) Stage 2 hypertension: Status: Acute Problem details: Renal Ultraound - while hospitalized [facility], adosterone level normal (8) Former smoker: Status: Acute Problem details: quit 2015 (9) History of alcoholism: Status: Acute Problem details: Quit drinking greater than 3 years ago (10) Hypertriglyceridemia: Status: Acute Problem details: Recommend treatment due to history of stroke DS: Summary Hospital Course Hospital Course: Pt w PMHx of CVA, migraine SWAN and asthma who presented w/ acute lt sided weakness. Neurotele consulted. MR scan of the brain did not show any acute or subacute stroke and thus Acute stroke was ruled out. Pt's weakness improved during her stay, and is thought to be 2/2 either a migraine equivalent as pt was having SWAN and nausea, or it could be 2/2 expression of prior hemorrhagic stroke (Stroke recrudescence). Dr. Rowe, stroke neurologist, recommended aspirin 81 mg daily, not a candidate for thrombolytics because of prior hemorrhagic stroke. echocardiogram unremarkable Pt had physical therapy & occupational therapy eval & Tx and will cont as an outpatient. Pt needs to follow-up with your primary care physician within 1-2 weeks to discuss and then follow-up for an aneurysm that was found at the left internal carotid artery + visiting neurology/interventional neurologist if needed. Sumatriptan treatment for migraine is contraindicated with patients with history of stroke pt needs to discuss this with primary care physician and neurology if needed. Ordered Tylenol, dexamethasone and antiemetics to Tx migraine SWAN. Status at Discharge Overall status at discharge: patient is progressing back to baseline Time Spent with Patient Time attestation: Total time spent providing and/or coordinating discharge services: 45 min Exam Narrative: Exam Narrative: GEN: comfortable, NAD H&N: No facial drooping Neuro: No drifting or weakness noted when comparing lt and rt LE & UE. Speech might be slightly slurred. CVS: RRR, NL S1 S2 Normal mood & affect Const: Vital Signs, click to edit/add: Vital Signs - 24 hr 11/21/24 22:09 11/21/24 22:11 11/21/24 22:34 Temperature Pulse Rate 85 Pulse Rate [Pulse Oximeter] 86 Respiratory Rate 18 Blood Pressure 136/116 H Blood Pressure [Le ft Arm] Blood Pressure [Ri ght Upper Arm] 136/116 H Pulse Oximetry 98 98 Oxygen Delivery Me thod Room Air 11/21/24 22:35 11/21/24 22:42 11/21/24 22:45 Temperature Pulse Rate 84 78 81 Pulse Rate [Pulse Oximeter] Respiratory Rate Blood Pressure 120/86 109/87 Blood Pressure [Le ft Arm] Blood Pressure [Ri ght Upper Arm] Pulse Oximetry 95 97 96 Oxygen Delivery Me thod 11/21/24 22:52 11/21/24 23:00 11/21/24 23:02 Temperature Pulse Rate 80 77 79 Pulse Rate [Pulse Oximeter] Respiratory Rate Blood Pressure 107/94 H 111/87 Blood Pressure [Le ft Arm] Blood Pressure [Ri ght Upper Arm] Pulse Oximetry 96 96 97 Oxygen Delivery Me thod 11/22/24 00:40 11/22/24 01:02 11/22/24 01:02 Temperature 6 F L 98.3 F Pulse Rate 64 Pulse Rate [Pulse Oximeter] 66 Respiratory Rate 16 Blood Pressure Blood Pressure [Le ft Arm] 130/96 H Blood Pressure [Ri ght Upper Arm] Pulse Oximetry 98 Oxygen Delivery Me thod Room Air 11/22/24 01:13 11/22/24 03:06 11/22/24 03:27 Temperature 97.8 F Pulse Rate Pulse Rate [Pulse Oximeter] 67 67 Respiratory Rate 16 18 Blood Pressure Blood Pressure [Le ft Arm] 101/70 Blood Pressure [Ri ght Upper Arm] Pulse Oximetry 98 96 Oxygen Delivery Me thod Room Air Room Air 11/22/24 07:00 11/22/24 08:00 11/22/24 08:00 Temperature 97.9 F Pulse Rate 61 Pulse Rate [Pulse Oximeter] 67 Respiratory Rate 18 18 Blood Pressure Blood Pressure [Le ft Arm] 104/68 Blood Pressure [Ri ght Upper Arm] Pulse Oximetry 96 96 Oxygen Delivery Me od Room Air Room Air 11/22/24 08:54 Temperature Pulse Rate Pulse Rate [Pulse Oximeter] 67 Respiratory Rate Blood Pressure Blood Pressure [Le ft Arm] Blood Pressure [Ri ght Upper Arm] Pulse Oximetry Oxygen Delivery Me thod DS: Data Data Completed and Pending Pending studies at discharge: F/up for the Lt IC aneurysm as an outpt Labs on day of discharge: Labs from last 24 hours 11/22/24 11/21/24 11/21/24 05:50 22:33 22:15 WBC 8.07 RBC 4.51 Hgb 14.1 Hct 43.4 MCV 96 MCH 31 MCHC 33 RDW Coeff of Jt 13.2 Plt Count 318 Neut % (Auto) 63.5 Lymph % (Auto) 23.8 [place] % (Auto) 8.2 Eos % (Auto) 2.7 Baso % (Auto) 0.9 Neut # (Auto) 5.13 Lymph # (Auto) 1.92 [place] # (Auto) 0.70 Eos # (Auto) 0.22 Baso # (Auto) 0.07 Abs Immat Gran (auto) 0.07 Imm/Tot Granulo (auto) 0.9 INR 0.95 Sodium 138 Potassium 3.8 Chloride 99 Carbon Dioxide 24 Anion Gap 15 BUN 13 Creatinine 1.0 Estimated GFR 69 Glucose 114 Calcium 9.7 Triglycerides 165 H Cholesterol 184 LDL Cholesterol, Calc 81 HDL Cholesterol 70 SARS-CoV-2 (PCR) Negative SARS-CoV-2 Influenza Type A (PCR) Negative PCR FLU A Influenza Type B (PCR) Negative PCR FLU B POC Troponin I 11/21/24 22:14 WBC RBC Hgb Hct MCV MCH MCHC RDW Coeff of Tj Plt Count Neut % (Auto) Lymph % (Auto) [place] % (Auto) Eos % (Auto) Baso % (Auto) Neut # (Auto) Lymph # (Auto) [place] # (Auto) Eos # (Auto) Baso # (Auto) Abs Immat Gran (auto) Imm/Tot Granulo (auto) INR Sodium Potassium Chloride Carbon Dioxide Anion Gap BUN Creatinine Estimated GFR Glucose Calcium Triglycerides Cholesterol LDL Cholesterol, Calc HDL Cholesterol SARS-CoV-2 (PCR) Influenza Type A (PCR) Influenza Type B (PCR) POC Troponin I 0.01 Discharge Plan Discharge Disposition: Home w/ Parent or Adult Date of Admission: 11/21/24 23:46 Attending Provider on Discharge: Tiffanie Soto Primary Care Provider: Ashlee Preston Condition: Improved Anticipated Discharge Date/Time: 11/22/24 14:55 Discharge Medications: New dexamethasone 6 mg tablet 6 mg PO DAILY PRNQty: 5 0RF ondansetron 4 mg tablet,disintegrating 4 mg PO Q8H PRN (Reason: nausea and vomiting) Qty: 5 0RF acetaminophen 500 mg tablet 1,000 mg PO Q8H PRN (Reason: migraine headache) Qty: 30 0RF Continued amlodipine 5 mg tablet 5 mg PO QDAY Qty: 90 3RF lisinopril-hydrochlorothiazide 20-25 mg tablet 2 tab PO DAILY Qty: 180 3RF Patient Comments: TAKE 2 TABLETS BY MOUTH ONCE DAILY propranolol 120 mg capsule,extended release 24 hr 120 mg PO Q24H Qty: 90 3RF epinephrine [EpiPen 2-Bhaskar] 0.3 mg/0.3 mL auto-injector 0.3 mg IM .PRN PRN (Reason: anaphylaxis) Qty: 2 5RF Rx Instructions: as a single dose; may repeat once amitriptyline 50 mg tablet 50 mg PO QHS Qty: 90 3RF fexofenadine [Kandy Allergy] 180 mg tablet 180 mg PO DAILY PRN Rx Instructions: TAKES SEASONALLY FOR ALLERGIES fluticasone propionate [Flonase Allergy Relief] 50 mcg/actuation spray,suspension 1 spray intranasal DAILY PRN Rx Instructions: USES SEASONALLY FOR ALLERGIES valacyclovir 500 mg tablet 500 mg PO BID PRN Rx Instructions: TAKES NEEDED FOR COLD SORE OUTBREAK montelukast 10 mg tablet 10 mg PO DAILY PRN Rx Instructions: SEASONALLY FOR ALLERGIES AirDuo Digihaler 113 mcg-14 mcg/actuation aero powdr breath act w/sensor 1 inh inhalation BID PRN Rx Instructions: takes seasonally for allergies albuterol sulfate 90 mcg/actuation HFA aerosol inhaler 2 puff inhalation Q4-6H PRN (Reason: shortness of breath or wheezing) Qty: 8.5 11RF Held sumatriptan succinate 100 mg tablet See Rx Instructions PO .COMPLEX Qty: 9 11RF Hold Instructions: Resume on 12/19/24. Sumatriptan is contraindicated with patients with stroke, you need to follow-up with your primary care physician and if needed with the neurologist to decide if you can resume it or not. Rx Instructions: take 1 tab at onset of headache; if no relief, may repeat 1 tab after at least 2 hrs; max = 2 tabs/24 hrs PO Discharge Orders: Discharge Order (Routine); Ordered 11/22/24 Ordered By: Tiffanie Soto Patient Education: Acetaminophen (By mouth), Ondansetron (By mouth) (Zofran, Zofran ODT, Zuplenz), Dexamethasone (By mouth), Migraine Headache (ED), Stroke (DC) Additional Instructions: You need to follow-up with your primary care physician within 1-2 weeks. You need to discuss and then follow-up with your primary care physician for that aneurysm of the left internal carotid artery, visiting neurology/interventional neurologist if needed. Sumatriptan treatment for migraine is contraindicated with patients with history of stroke you need to discuss this with your primary care physician and neurology if needed. Activity Level: Activity as Tolerated Discharge Diet: Low Fat/Low Cholesterol Follow Up Appointments: Ashlee Preston MD [Primary Care Provider] - 11/25/24 (You need to discuss and then follow-up with your primary care physician for that aneurysm of the left internal carotid artery, visiting neurology/interventional neurologist if needed. Sumatriptan treatment for migraine is contraindicated with patients with history of stroke you need to discuss this with your primary care physician and neurology if needed) Forms: [employer] Info Instructions
--- NOTE | 2024-11-22 15:27 | PC.NURSE ---
End of Shift: Patient pleasant and cooperative, A&O. VSS, afebrile. Patient reports feeling her left side weakness is back to her baseline. Patient reports a headache this shift, managed with PRN medication, see DEC. SBA. Tolerating clear liquids
--- NOTE | 2024-11-22 16:11 | PC.NURSE ---
DC: Received pt at 1500, alert, oriented and vitally stable. Left side weak at baseline. DC information given to pt and spouse, topics including medications, follow up and symptoms worsening. IV removed, tip intact. Pt DC at 1601 with spouse.
== END 2024-11-22 16:01 | disposition home or self-care (01) ==
LOC: ED 23:30 → MEDSURG 23:46
PROVIDERS: Admitting Provider Internal Medicine; Emergency Provider Emergency Medicine; PCP Emergency Medicine; Visit Provider Internal Medicine
DX: I67.1 Cerebral aneurysm, nonruptured (principal); M62.81 Muscle weakness (generalized); Z86.73 Personal history of transient ischemic attack (TIA), and cerebral infarction without residual deficits; I10 Essential (primary) hypertension; G43.909 Migraine, unspecified, not intractable, without status migrainosus; Z87.891 Personal history of nicotine dependence; J45.20 Mild intermittent asthma, uncomplicated; F10.21 Alcohol dependence, in remission; E78.1 Pure hyperglyceridemia; J30.2 Other seasonal allergic rhinitis
CPT/HCPCS: 36415; 70450; 70496; 70498; 70553; 80048; 80061; 84484; 85025; 85610; 87631; 93005; 93306; 96361; 96374; 96375; 96376; 97161; 97165; 99284; 99285; A9270; A9575; G0378; J1100; J1200; J2765; J7030; Q9967

== ENCOUNTER 2025-01-13 15:16 | Outpatient (CLI) | payer BC, SELFPAY | END 2025-01-13 15:17 | disposition home or self-care (01) | LOC: LKVREF 15:17 | PROVIDERS: PCP Emergency Medicine; Visit Provider Emergency Medicine | DX: I10 Essential (primary) hypertension (principal); Z01.818 Encounter for other preprocedural examination; E78.1 Pure hyperglyceridemia; E87.5 Hyperkalemia | CPT/HCPCS: 80048; 80061 ==

== ENCOUNTER 2025-01-14 12:18 | Emergency (ER) | payer BC, SELFPAY ==
--- OUTSIDE RECORDS SUMMARY | 2025-01-14 12:20 | XMS_ITS | Clinical Summary ---
Author Organization [facility] Address [address] [place] [address] Care Team Providers Care Merchandise Presentation Associate Name Role Phone Ashlee Preston MD Primary Care Provider [phone] Allergies Active Allergy Reactions Criticality Noted Date Comments Codeine Itching 06/18/2007 Prochlorperazine Seizures 04/21/2005 Penicillins Anaphylaxis High 04/21/2005 Hydrocodone-Acetaminophen Vomiting 03/11/2013 Medications MEDROXYPROGESTERON E (CONTRACEPTIVE) 150 MG/ML IM SUSP inject 1 milliliter (150 mg) by intramuscular route every 3 months 1 0 06/12/20 07 Active albuterol HFA (PRO-AIR,VENTOLIN, PROVENTIL) 90 mcg/actuation inhalerIndications :Cough Inhale 1 Puff by mouth every 4 hours if needed. 1 Inhaler 0 02/21/20 13 Active lisinopril (PRINIVIL; ZESTRIL) 20 mg tabletIndications: Unspecified essential hypertension Take 2 tablets by mouth once daily. 180 tablet 3 04/08/20 13 Active triamcinolone (ARISTOCORT; KENALOG) 0.1 % creamIndications:R luis manuel Apply topically to affected area(s) 3 times daily. To legs 1 Tube 0 04/08/20 13 Active hydrochlorothiazid e (HCTZ) 25 mg tablet Take 1 tablet by mouth once daily. 30 tablet 0 04/11/20 13 Active metoprolol (TOPROL XL) 50 mg Sustained-Release tabletIndications: Unspecified essential hypertension Take 1 tablet by mouth once daily. 90 tablet 1 04/14/20 13 Active oxyCODONE-acetamin ophen, 5-325 mg, (PERCOCET) per tablet Take 1-2 tablets by mouth every 4 hours if needed for Pain. Max acetaminophen dose: 4000mg in 24 hrs. 30 tablet 0 04/17/20 13 Active clopidogreL (PLAVIX) 75 mg tabletIndications: Brain aneurysm (HC) Take 1 tablet (75mg) by mouth once daily, start taking Sunday02/02/2025 30 Tablet 02/03/20 25 Active famotidine (PEPCID) 10 mg tabletIndications: Antiplatelet or antithrombotic long-term use Take 1 tablet (10mg) by mouth two times a day if needed for stomach upset (while on clopidogrel) 60 Tablet 02/03/20 25 Active Active Problems Problem Noted Date Diagnosed [...] 03/08/2004 BACK ACHE 05/01/2001 SPRAIN/STRAIN, ANKLE 001 Encounters Date Type Department Care Team Description 12/11/2024 Orders Only [facility] [address] [place], [place] [id number] Glendy Morales NP <No scans attached> 12/09/2024 2:00 PM PARADI TENDER Telemedicine [facility] [address] [address] Akshat Granados MD brain aneurysm 11/27/2024 Telephone [facility] [address] [place], [place] [id number] Staff, Other Clinical ANEURYSM REFERRAL 11/22/2024 11:40 AM PARADI TENDER Ancillary Procedure [facility] [address] [place] [address] 11/22/2024 Office Visit [facility] [address] [place] [phone] Augustina Luu MBBS Telehealth (weakness) 11/21/2024 Office Visit [facility] [address] [facility] [address] [place] [address] Ana Laguna MD Telehealth ([facility] - telephone consult only) from Last 3 Months Immunizations Immunization Administration Dates Next Due Td (Age >=7 [...] on file Legal Sex Female 5:24 AM PARADI TENDER Gender Identity Not on file Sexual [...] 04/14/2013 3:11 PM CDT Plan of Treatment Upcoming Encounters Date Type Department Care Team (Late st Contact Info) Description 02/10/2025 7:30 AM CDT Appointment [facility] [address] [place] [address] 02/17/2025 1:00 PM CDT Phone Office Visit [facility] [address] [facility] [address] [place] [phone] Akshat Granados MD [address] [place] [address] [place] [address] 08/20/2025 8:30 AM CDT Appointment [facility] [address] [place] [address] Health Maintenance Due Date Last Done Comments [...] 2020 Pap test for age 21-65 08/06/2022 , 08/06/2019, 06/06/2012 ([facility]), Additional history exists COVID-19 vaccine series ( season) 2024 02/08/2021, 01/18/2021 Influenza Vaccine (#1) 2024 Pneumococcal series for age 6-49 Aged Out No longer eligible based on patient's age to complete this topic Procedures Procedure Name Priority Date/Time Associated Diagnosis Comments ECHO TTE COMPLETE WO CONTRAST Routine 11/22/2024 12:30 PM PARADI TENDER Acute left-sided weakness HTN (hypertension) [employer]ER THIN PREP PAP SCREEN IMAGED Routine 08/06/2019 7:40 AM CDT CHOLESTEROL,TOTAL Routine 10/19/2003 9:1 0 AM PARADI TENDER from Last 3 Months or Most Recently Relevant to Health Maintenance Results * ECHO TTE COMPLETE WO CONTRAST (11/22/2024 12:30 PM PARADI TENDER) AORTIC VALVE MEAN PG 2 mmHg EJECTION FRACTION 72 % PEAK TR VELOCITY 2.2 m/s LVEDD 3.3 cm Anatomical Region Laterality Modality Ultrasound 11/22/2024 11:4 8 AM PARADI TENDER Narrative 11/22/2024 12:46 PM PARADI TENDER ECHOCARDIOGRAM MARY STEWART : 1975 49 years Study Date: 11/22/2024 11:48:21 AM Gender: F BP: 101/70 mmHg Height: 163.00 cm BSA: 1.64 m Weight: 60.00 kg Tech: SHAREE Referring MD: AYAH BEGUM Site: [facility] Reading Location: [place]- Patient Location: Inpatient. Procedure: 2D, Color Doppler and Spectral Doppler. Indication for study: Acute left-sided weakness, HTN Cardiac Rhythm: Regular.Study quality: Fair. Final Impressions: 1. Normal left ventricular size, borderline wall thickness, normal global systolic function, calculated EF of 72 %. 2. Right ventricular cavity size is normal, global systolic RV function is normal. 3. The aortic valve is normal, no stenosis and no regurgitation. 4. The mitral valve is normal, trace mitral regurgitation. Comparison Compared to prior exam images and report of 12/16/2018, there has been no significant change. Chamber Sizes and Function Normal left ventricular size, borderline wall thickness, normal global systolic function, calculated EF of 72 %. No resting regional wall motion abnormality visualized. Left atrial size is normal. Right ventricular cavity size is normal, global systolic RV function is normal. The right atrium is normal. Right atrial volume index is 13 ml/m . Right atrial area is 11 cm . The pulmonary artery is not well visualized. The sinus of Valsalva is normal sized. The ascending aorta is normal sized. Valves, RV Pressures and Diastolic Function The aortic valve is normal in structure, no stenosis and no regurgitation. The mitral valve is normal in structure, trace mitral regurgitation. Normal diastolic function. The tricuspid valve is normal in structure. Tricuspid regurgitation is trace regurgitation. The tricuspid regurgitant velocity is 2.2 m/s, the estimated right ventricular systolic pressure is 20 mmHg plus right atrial pressure. The pulmonic valve is not well visualized. Trace pulmonary regurgitation. Masses, Effusion, Shunts There is no pericardial effusion. The inferior vena cava is small sized, respiratory size variation greater than 50%. No left to right shunting was detected by limited color flow Doppler interrogation of the interatrial septum. MEASUREMENTS AND CALCULATIONS 2-D Measurements and LV Function: LVID (d) 3.3 cm Planimetered EF 72 % LVID (s) 2.1 cm LV FS% (2D) 35 % IVS (d) 1.2 cm LVOT diameter 2.1 cm LVPW (d) 1.2 cm HR 57 bpm Ao Sinus 3.1 cm LA Vol index 12 ml/m2 Asc Ao 3.3 cm RA Vol index 13 ml/m2 LA 3.1 cm RA area 11 cm RV Max 4C (d) 3.5 cm Diastology: Mitral Tissue Doppler E Peak 0.8 m/s e', Septum 0.07 m/s A Peak 0.7 m/s e', Lateral 0.07 m/s E/A 1.0 E/e' Average 10.79 DT 180 msec Aortic Valve: Vmax 1.1 m/s PADILLA (V) 3.00 cm VTI 0.25 m PADILLA (I) 2.80 cm LVOT V max 1.0 m/s Max PG 5 mmHg LVOT VTI 0.20 m Mean PG 2 mmHg SV 70 ml Dim Index 0.82 SV index 42 ml/m CO 4.0 l/min CI 2.4 l/min/m Mitral Valve: MVA 4.2 cm MV P 1/2 52 msec Tricuspid Valve and estimated PA pressures: TR Vmax 2.2 m/s TAPSE 2.3 cm TR maxG 20 mmHg . This study was interpreted by an [facility] accredited facility. CC: HIM (med records) [facility] Med[facility]Surg - IP [facility]. Final Procedure Note Carroll Luna MD - 11/22/2024 ECHOCARDIOGRAM MARY STEWART : 1975 49 years Study Date: 11/22/2024 11:48:21 AM Gender: F BP: 101/70 mmHg Height: 163.00 cm BSA: 1.64 m Weight: 60.00 kg Tech: SHAREE Referring MD: AYAH BEGUM Site: [facility] Reading Location: [place]- Patient Location: Inpatient. Procedure: 2D, Color Doppler and Spectral Doppler. Indication for study: Acute left-sided weakness, HTN Cardiac Rhythm: Regular.Study quality: Fair. Final Impressions: 1. Normal left ventricular size, borderline wall thickness, normal globalsystolic function, calculated EF of 72 %. 2. Right ventricular cavity size is normal, global systolic RV functionis normal. 3. The aortic valve is normal, no stenosis and no regurgitation. 4. The mitral valve is normal, trace mitral regurgitation. Comparison Compared to prior exam images and report of 12/16/2018, there has been nosignificant change. Chamber Sizes and Function Normal left ventricular size, borderline wall thickness, normal globalsystolic function, calculated EF of 72 %. No resting regional wall motionabnormality visualized. Left atrial size is normal. Right ventricularcavity size is normal, global systolic RV function is normal. The rightatrium is normal. Right atrial volume index is 13 ml/m . Right atrialarea is 11 cm . The pulmonary artery is not well visualized. The sinus ofValsalva is normal sized. The ascending aorta is normal sized. Valves, RV Pressures and Diastolic Function The aortic valve is normal in structure, no stenosis and no regurgitation.The mitral valve is normal in structure, trace mitral regurgitation.Normal diastolic function. The tricuspid valve is normal in structure.Tricuspid regurgitation is trace regurgitation. The tricuspid regurgitantvelocity is 2.2 m/s, the estimated right ventricular systolic pressure is20 mmHg plus right atrial pressure. The pulmonic valve is not wellvisualized. Trace pulmonary regurgitation. Masses, Effusion, Shunts There is no pericardial effusion. The inferior vena cava is small sized,respiratory size variation greater than 50%. No left to right shunting wasdetected by limited color flow Doppler interrogation of the interatrialseptum. MEASUREMENTS AND CALCULATIONS 2-D Measurements and LV Function: LVID (d) 3.3 cm Planimetered EF 72 % LVID (s) 2.1 cm LV FS% (2D) 35 % IVS (d) 1.2 cm LVOT diameter 2.1 cm LVPW (d) 1.2 cm HR 57 bpm Ao Sinus 3.1 cm LA Vol index 12 ml/m2 Asc Ao 3.3 cm RA Vol index 13 ml/m2 LA 3.1 cm RA area 11 cm RV Max 4C (d) 3.5 cm Diastology: Mitral Tissue Doppler E Peak 0.8 m/s e', Septum 0.07 m/s A Peak 0.7 m/s e', Lateral 0.07 m/s E/A 1.0 E/e' Average 10.79 DT 180 msec Aortic Valve: Vmax 1.1 m/s PADILLA (V) 3.00 cm VTI 0.25 m PADILLA (I) 2.80 cm LVOT V max 1.0 m/s Max PG 5 mmHg LVOT VTI 0.20 m Mean PG 2 mmHg SV 70 ml Dim Index 0.82 SV index 42 ml/m CO 4.0 l/min CI 2.4 l/min/m Mitral Valve: MVA 4.2 cm MV P 1/2 52 msec Tricuspid Valve and estimated PA pressures: TR Vmax 2.2 m/s TAPSE 2.3 cm TR maxG 20 mmHg . This study was interpreted by an [facility] accredited facility. CC: DORCAS (med records) [facility], Med/Surg - IP [facility]. Final us Ayah Begum MD ECHO ORD Final Resu lt * MEAL MILLER THIN PREP PAP SCREEN IMAGED (08/06/2019 7:40 AM CDT) Case Report Gynecologic Cytology Report Case: [id number] Authorizing Provider: Jose Miguel Sherman PA-C Collected: 08/06/2019 0740 Ordering Location: [facility] Received: 08/06/2019 1728 First Screen: Jamey Peoples Specimen: MEAL MILLER ThinPrep Vial Screening, Cervical/Vaginal 08/15/2019 2:33 PM CDT [facility] INTERPRETATION/ RESULT NEGATIVE FOR INTRAEPITHELIAL LESION OR MALIGNANCY (NIL) (none) 08/15/2019 2:33 PM CDT [facility] IMEN ADEQUACY Satisfactory for evaluation Endocervical component present 08/15/2019 2:33 PM CDT [facility] HPV REQUEST HPV and PAP 08/15/2019 2:33 PM CDT [facility] Last Pap Date 03/22/2016 08/15/2019 2:33 PM CDT [facility] Last Pap Result NIL 9 2:33 PM CDT [facility] Automated Review Successful 08/15/2019 2:33 PM CDT [facility] Comment:Specimen processed s uccessfully by automated sr. pricing analyst device, ThinPrep Imaging System, [employer] ANCILLARY TESTING MEAL MILLER HPV Ordered, Please see separate report 08/15/2019 2:33 PM CDT [facility] Note The pap test is a [...] lesions. Cytology is screened and interpreted at [facility] - [address], [place] [address] and [facility] - [address]; [place] [address] [address] [facility] - [address]; [place] [address] and [facility] [address]; [place] [address] 08/15/2019 2:33 PM CDT [facility] Other (Cervical/Vagina l) 08/06/2019 7:40 AM CDT 08/06/2019 5:28 PM CDT Jose Miguel Sherman PA-C PATHOLOGY/CYTOLOGY Final Resu lt [facility] [address] [place] [address], [place] * CHOLESTEROL,TOTAL (10/19/2003 9:10 AM PARADI TENDER) CHOLESTEROL,TOT AL 174 110 - 199 mg/dL 10/19/2003 9:10 AM PARADI TENDER Narrative 03/30/2004 7:50 PM CDT Ordered by an unspecified provider. Other Clinical Staff CHEMISTRY Final Resul t from Last 3 Months or Most Recently Relevant to Health Maintenance Insurance MEDICAID Advance Directives * Full Code (Latest Code Status on File) Date Activated Date Inactivated Comments 04/17/2013 10:16 AM 04/17/2013 5:14 PM * Full Code Date Activated Date Inactivated Comments 04/11/2013 10:30 AM 04/11/2013 4:19 PM Care Teams Merchandise Presentation Associate Relationship Specialty Start Date End Date Ashlee Preston MD [address] [place] [address] PCP - General Emergency Medicine 05/25/21
--- OUTSIDE RECORDS SUMMARY | 2025-01-14 12:20 | XMS_ITS | Clinical Summary ---
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
[2025-01-14 12:28] VITALS: BP 90/57; PULSE 84; RESP 18; TEMP 36.6; O2SAT 99; BMI 22.5
--- NOTE | 2025-01-14 12:52 | ED_ITS ---
HPI - General Adult General Date Seen: 01/14/25 Chief complaint: Unspecified Complaint, Adult Stated complaint: Lab result follow up Time Seen by Provider: 01/14/25 12:38 Source: patient, RN notes reviewed and old records reviewed Mode of arrival: ambulatory Limitations: no limitations History of Present Illness HPI narrative: Mary is a very pleasant 49-year-old female with a complicated past medical history including ischemic stroke at the age of 24, hemorrhagic stroke at the age of 42 in 2017, followed by another ischemic stroke a month later as well as hypertension since age of 16 and a past history of alcohol and tobacco abuse who comes to the emergency room for evaluation regarding abnormal lab values. Patient noted to be a candidate for a left-sided internal carotid aneurysm repair scheduled at [facility] on February 10. We did not receive a phone call from the clinic in regards to this patient coming to the ER but from what I can determine she was seen by Dr. Montana yesterday for preoperative physical and had labs done. When I look at the labs I do note that creatinine has risen to 2.4 from a previous value of 1.0. I assume this may be what they are concerned about. Patient notes that she does take blood pressure medication and I see that she is on lisinopril/hydrochlorothiazide 20/25 2 tablets daily for blood pressure control. Patient did note that 3 days ago she did have ibuprofen for headache. She notes that ever since she had her stroke she has chronic headache. She notes today they is a little bit worse than yesterday and she says that this usually means that she will have a migraine tomorrow. She has not had any fluid retention, nausea unusual back pain or recent kidney stones. She has not had any trauma vomiting or diarrhea denies reason to be dehydrated. Patient does note that she and her were up [employer] this weekend but she only ended up having 1 glass of wine. She has had no recent medication changes. Denies recent cough cold fever. Related Data Home Medications ?Medication ?Instructions ?Recorded ?Confirmed fexofenadine 180 mg tablet 180 mg PO DAILY PRN 11/22/24 01/14/25 (Kandy Allergy) fluticasone 113mcg-salmeterol 1 inh inhalation BID PRN 11/22/24 01/14/25 14mcg/actuation breath act,powder sensor ([email or web address] Digihaler) fluticasone propionate 50 1 spray intranasal DAILY PRN 11/22/24 01/14/25 mcg/actuation nasal spray,suspension (Flonase Allergy Relief) montelukast 10 mg tablet 10 mg PO DAILY PRN 11/22/24 01/14/25 valacyclovir 500 mg tablet 500 mg PO BID PRN 11/22/24 01/14/25 Previous Rx's ?Medication ?Instructions ?Recorded amitriptyline 50 mg tablet 50 mg PO QHS #90 tabs 02/07/24 amlodipine 5 mg tablet 5 mg PO QDAY #90 tabs 02/07/24 epinephrine 0.3 mg/0.3 mL 0.3 mg (0.3 mL) IM .PRN PRN 02/07/24 injection, auto-injector (EpiPen anaphylaxis #2 ea 2-Bhaskar) lisinopril 20 2 tab PO DAILY #180 tabs 02/07/24 mg-hydrochlorothiazide 25 mg tablet propranolol 120 mg capsule,24 120 mg PO Q24H #90 caps 02/07/24 hr,extended release albuterol sulfate 90 mcg/actuation 2 puff inhalation Q4-6H PRN 02/22/24 aerosol inhaler shortness of breath or wheezing #8.5 grams acetaminophen 500 mg tablet 1,000 mg (2 x 500 mg) PO Q8H PRN 11/22/24 migraine headache #30 tabs dexamethasone 6 mg tablet 6 mg PO DAILY PRN #5 tabs 11/22/24 ondansetron 4 mg disintegrating 4 mg PO Q8H PRN nausea and 11/22/24 tablet vomiting #5 tabs atorvastatin 10 mg tablet 10 mg PO QDAY #90 tabs 11/25/24 topiramate 25 mg tablet (Topamax) 25 mg PO QDAY #60 tabs 12/17/24 tramadol 50 mg tablet 50 mg PO Q6H PRN pain #24 tabs 01/09/25 ubrogepant 100 mg tablet (Ubrelvy) 100 mg PO ONCE #10 tabs 01/12/25 Allergies Allergy/AdvReac Type Severity Reaction Status Date / Time Penicillins Allergy Severe Anaphylaxis Verified 01/14/25 12:35 venom-honey bee Allergy Severe Swelling Verified 01/14/25 12:35 of Lip/Tongue/Throat prochlorperazine Allergy Mild Seizure Verified 01/14/25 12:35 Quinolones Allergy Mild Unknown Verified 01/14/25 12:35 Review of Systems Status of ROS: Reports: 10 or more systems reviewed and unremarkable except as noted in History and below Const: Reports: fatigue; Denies: fever or chills Eyes: Denies: change in vision or eye discharge ENMT: Denies: throat pain, neck pain, throat swelling or nasal congestion Cardio: Denies: chest pain, swelling of feet/ankles, lightheadedness or shortness of breath with exertion Resp: Denies: shortness of breath or cough GI: Reports: other (Loss of appetite); Denies: abdominal pain, nausea or vomiting : Denies: painful urination, urinary frequency, urinary urgency or blood in urine Musculo: Denies: back pain, neck pain, extremity pain or extremity swelling Integ/Breast: Denies: rash or itching Neuro: Reports: headache; Denies: numbness in extremities Endo: Reports: fatigue Allergy/Immuno: Denies: throat swelling PFSH PFS Medical History Pre-op exam ?Z01.818 - Encounter for other preprocedural examination (ICD-10) Stage 2 hypertension ?I10 - Essential (primary) hypertension (ICD-10) Cerebrovascular accident (CVA) ?I63.9 - Cerebral infarction, unspecified (ICD-10) History of acute renal failure ?Z87.448 - Personal history of other diseases of urinary system (ICD-10) History of hemorrhagic cerebrovascular accident (CVA) without residual deficits ?Z86.73 - Personal history of transient ischemic attack (TIA), and cerebral infarction without residual deficits (ICD-10) Former smoker ?Z87.891 - Personal history of nicotine dependence (ICD-10) History of alcoholism ?F10.21 - Alcohol dependence, in remission (ICD-10) Surgical History History of tubal ligation ?Z98.51 - Tubal ligation status (ICD-10) History of repair of anterior cruciate ligament ?Z98.890 - Other specified postprocedural states (ICD-10) History of bilateral inguinal hernia repair ?Z98.890 - Other specified postprocedural states (ICD-10) ?Z87.19 - Personal history of other diseases of the digestive system (ICD-10) History of appendectomy ?Z90.49 - Acquired absence of other specified parts of digestive tract (ICD- 10) Family History Father High blood pressure Brain aneurysm Social History Narrative: last worked aug 2022, no tobacco , no etoh , walk daily, What is your current living situation?: I presently have a place to live Problems where you live: no known problems Problems where you live details: n/a In the past 12 months, utilities in danger of being shut off: no In past 12 months, lack of transportation kept you from medical appts, meetings, work, or getting things needed for daily living: no In the past 12 mos, have been you worried that your food would run out before you had money to buy more?: never true In the past 12 mos, the food you bought just didn't last and you didn't have money to buy more?: never true Highest level of school completed/degree received: some college, no degree Smoking Status: Former smoker Do you use any of these nicotine containing products: E-Cigarettes Second hand tobacco smoke exposure: No How often do you have a drink containing alcohol: monthly or less How often do you have six or more drinks on one occasion: Never AUDIT-C Alcohol total score: 1 Non-prescribed substance use: denies use How often does anyone, including family, friends and others, physically hurt you : never How often does anyone, including family, friends and others, insult or talk down to you: never How often does anyone, including family, friends and others, threaten you with harm: never How often does anyone, including family, friends and others, scream or curse at you: never service: No Exam Narrative: Exam Narrative: Alert and oriented. No acute distress. Mentating normally. Face symmetrical. Heart with regular rate and rhythm and lungs are clear bilaterally. Good color. Abdomen soft. Moving all extremities. Neck is supple. No guarded movement. Const: Vital Signs, click to edit/add: Vital Signs - 24 hr 01/14/25 12:28 01/14/25 14:09 01/14/25 15:21 Temperature 97.8 F 97.8 F Pulse Rate [Left P ulse Oximeter] 84 71 Respiratory Rate 18 18 Blood Pressure 94/75 Blood Pressure [Ri ght Upper Arm] 90/57 L 81/55 L Pulse Oximetry 99 99 Oxygen Delivery Me thod Room Air Room Air 01/14/25 15:41 01/14/25 16:20 Temperature 97.6 F Pulse Rate [Left P ulse Oximeter] 64 Respiratory Rate 18 Blood Pressure 83/62 L Blood Pressure [Ri ght Upper Arm] 90/62 Pulse Oximetry 99 Oxygen Delivery Me thod Room Air Documenting provider has reviewed patient's vital signs: yes Course Course ED Course: At this time patient has mild headache that is like all previous headaches according to patient. She denies any numbness or tingling new weakness with this headache. She has not had any visual changes. She is receptive to medications and we will use Reglan 10 mg IV piggyback as well as Benadryl 25 mg IV as well as 1 L of normal saline. She does list Compazine as an allergy and seizure but according to previous notes as tolerated Reglan without difficulty. In regards to the elevated creatinine patient does not note any recent trauma. She is on a does of lisinopril 20 mg/hydrochlorothiazide 25 mg 2 tablets daily. She notes not taking any extra medication. She has not had any vomiting or diarrhea. She did have 1 alcoholic drink this past weekend but adamantly denies anything further. I do not have any reason for her to be dehydrated today. She does note taking a dose of ibuprofen. Review of the chart notes that she had a systolic blood pressure of 80 yesterday. I do not note that this was read checked. In the ER here today her systolic blood pressure does appear to be 80s to 90s. She is also on extended- release propanolol 120 mg. I suspect that she is dehydrated from the use of her diuretic, possible alcohol use and ibuprofen. I think she is not tachycardic because of the large dose of the beta-alonso. She does not appear to be septic and does not have any fever. Will hydrate with 1 L of normal saline. Will recheck labs today including CBC, comprehensive p jorge, CRP as well as check a urinalysis for any evidence of protein urea. Reevaluation(s) Reevaluation #1: Patient noted to have improvement of her headache. Her creatinine comes back at 2.2 with a BUN of 40. Urinalysis shows specific gravity of 1.005. No evidence of UTI, proteinuria. Alcohol level is negative CRP is negative. Electrolytes are within normal limits with a potassium of 4.3. Will give 2 L of fluid with plan to recheck basic panel shortly. Reevaluation #2: Blood pressure now improved to 95 systolic. Looking back at other values patient has usually been around 100. She is feeling better with resolution of her headache. A recheck of her creatinine is 1.7. Vital Signs Vital signs: Initial Vital Signs Temperature 97.8 F 01/14/25 12:28 Temperature Source Temporal Artery Scan 01/14/25 12:28 Pulse Rate 84 01/14/25 12:28 Respiratory Rate 18 01/14/25 12:28 Blood Pressure 90/57 L 01/14/25 12:28 Blood Pressure Mean 68 L 01/14/25 12:28 Blood Pressure Position Sitting 01/14/25 12:28 Pulse Oximetry 99 01/14/25 12:28 Oxygen Delivery Method Room Air 01/14/25 12:28 Vital Signs Temperature 97.8 F 01/14/25 12:28 Pulse Rate 84 01/14/25 12:28 Respiratory Rate 18 01/14/25 12:28 Blood Pressure 90/57 L 01/14/25 12:28 Pulse Oximetry 99 01/14/25 12:28 Oxygen Delivery Method Room Air 01/14/25 12:28 Temperature 97.6 F 01/14/25 16:20 Pulse Rate 64 01/14/25 16:20 Respiratory Rate 18 01/14/25 16:20 Blood Pressure 90/62 01/14/25 16:20 Pulse Oximetry 99 01/14/25 16:20 Oxygen Delivery Method Room Air 01/14/25 16:20 Medications Administered Medications: Discontinued Medications Generic Name Dose Route Start Last Admin Trade Name Freq PRN Reason Stop Dose Admin Diphenhydramine HCl 25 mg 01/14/25 13:07 01/14/25 13:27 Diphenhydramine 50 Mg/Ml Inj IVP 01/14/25 13:08 25 mg ONCE ONE Administration Sodium Chloride 1,000 mls @ 1,000 mls/hr 01/14/25 12:53 01/14/25 14:32 0.9 % Sodium Chloride 1000 Ml IV 01/14/25 13:52 Infused .Q1H [facility] Infusion Metoclopramide HCl 10 mg/ 102 mls @ 306 mls/hr 01/14/25 13:07 01/14/25 14:00 Sodium Chloride IVPB 01/14/25 13:08 Infused ONCE ONE Infusion Sodium Chloride 1,000 mls @ 1,000 mls/hr 01/14/25 15:18 01/14/25 16:27 0.9 % Sodium Chloride 1000 Ml IV 01/14/25 16:17 Infused .Q1H [facility] Infusion Medical Decision Making MDM Narrative Medical decision making narrative: 1. Elevated creatinine-improved after fluids. Creatinine yesterday was 2.4, recheck 2.2 today and after fluid 1.7. I suspect that patient had a number of factors contributing to this. First of all she did have an alcoholic drink this weekend in association with using ibuprofen. She is on lisinopril and hydrochlorothiazide as well. Complicating this is likely prevention of a physiological tachycardia with the use of propanolol causing hypotension and decreased blood flow to the kidneys. Her urinalysis does not show any evidence of proteinuria or UTI. Patient received 2 L of saline in the ED today and is feeling much improved. 2. Hypotension-likely a combination of dehydration as well as continued use of diuretic and propanolol. 3. Disposition-home at this time. I would like patient to hold her diuretic tomorrow morning and recheck her creatinine with her primary care provider. If continues to be elevated may need to be referred for nephrology consult as well as further labs including ADH and If she has worsening symptoms onset of new symptoms have her to return to the emergency room. Lab Data Labs: Lab Results 01/14/25 01/14/25 01/14/25 Range/Units 13:12 14:33 15:58 WBC 6.21 (4.50-11.00) K/uL RBC 4.02 (4.00-5.20) m/uL Hgb 12.8 (12.0-16.0) gm/dL Hct 38.9 (33.0-51.0) % MCV 97 (80-100) fL MCH 32 (26-34) pg MCHC 33 (32-36) gm/dL RDW Coeff of Tj 13.6 (11.5-15.5) % Plt Count 326 (140-440) K/uL Neut % (Auto) 65.6 (42.0-72.0) % Lymph % (Auto) 21.6 (20-44) % Johnston % (Auto) 7.6 (0.0-11.0) % Eos % (Auto) 4.0 (0.0-7.0) % Baso % (Auto) 1.0 (0.0-3.0) % Neut # (Auto) 4.08 (1.7-7.0) K/uL Lymph # (Auto) 1.34 (0.90-2.90) K/uL Johnston # (Auto) 0.50 (0.00-0.90) K/UL Eos # (Auto) 0.25 (0.00-0.50) K/uL Baso # (Auto) 0.06 (0.00-0.30) K/uL Abs Immat Gran (auto) 0.01 (0.00-0.30) K/uL Imm/Tot Granulo (auto) 0.2 % Sodium 141 141 (135-149) mmol/L Potassium 4.3 4.4 (3.6-5.1) mmol/L Chloride 106 112 (96-114) mmol/L Carbon Dioxide 21 21 (20-32) mmol/L Anion Gap 14 8 (7-15) mEq/L BUN 40 H 35 H (5-24) mg/dL Creatinine 2.2 H 1.7 H (0.5-1.5) mg/dL Estimated Creat Clear 26.71 34.57 Estimated GFR 27 37 ml/min Glucose 109 82 (60-115) mg/dL Calcium 9.5 8.3 L (8.4-10.6) mg/dL Total Bilirubin 0.6 (0.1-1.5) mg/dL AST 26 (12-35) U/L ALT 28 (4-35) U/L Alkaline Phosphatase 71 (40-150) U/L C-Reactive Protein < 0.5 L (0.5-1.0) mg/dL Total Protein 7.4 (6.0-8.3) g/dL Albumin 5.1 H (3.3-5.0) g/dL Urine Color Yellow (Yellow) Urine Appearance Clear (Clear) Urine pH 5.5 (5.0-8.5) Ur Specific Bartlett <= 1.005 (1.000-1.030) Urine Protein Negative (Negative) Urine Glucose (UA) Negative (Negative) Urine Ketones Negative (Negative) Urine Blood Negative (Negative) Urine Nitrite Negative (Negative) Urine Bilirubin Negative (Negative) Urine Urobilinogen 0.2 (0.2-1.0) Ur Leukocyte Esterase Negative (Negative) Urine RBC 0-2 (0-2) Urine WBC 0-2 (0-5) Ur Squamous Epith Cells Few (None-Few) Urine Bacteria Few A (None) Ethyl Alcohol < 0.01 (0.01-0.03) % Discharge Plan Discharge Clinical Impression: Creatinine elevation Hypotension Qualifiers: Hypotension type: hypotension due to drug Qualified Code(s): I95.2 - Hypotension due to drugs Patient Disposition: Home, Self-Care Condition: Improved Additional Instructions: Hold on your medication lisinopril/hydrochlorothiazide. Recheck your creatinine and labs at your primary clinic tomorrow. Continue increasing fluid intake including her Gatorade. Return for worsening symptoms and as needed. Prescriptions: No Action amlodipine 5 mg tablet 5 mg PO QDAY Qty: 90 3RF lisinopril-hydrochlorothiazide 20-25 mg tablet 2 tab PO DAILY Qty: 180 3RF Patient Comments: TAKE 2 TABLETS BY MOUTH ONCE DAILY propranolol 120 mg capsule,extended release 24 hr 120 mg PO Q24H Qty: 90 3RF epinephrine [EpiPen 2-Bhaskar] 0.3 mg/0.3 mL auto-injector 0.3 mg IM .PRN PRN (Reason: anaphylaxis) Qty: 2 5RF Rx Instructions: as a single dose; may repeat once amitriptyline 50 mg tablet 50 mg PO QHS Qty: 90 3RF Ubrelvy 100 mg tablet 100 mg PO ONCE Qty: 10 0RF Rx Instructions: as a single dose; may repeat once in >=2 hours after first dose if needed, maximum dose to 100 mg in 24 hours atorvastatin 10 mg tablet 10 mg PO QDAY Qty: 90 0RF fexofenadine [Kandy Allergy] 180 mg tablet 180 mg PO DAILY PRN Rx Instructions: TAKES SEASONALLY FOR ALLERGIES fluticasone propionate [Flonase Allergy Relief] 50 mcg/actuation spray,suspension 1 spray intranasal DAILY PRN Rx Instructions: USES SEASONALLY FOR ALLERGIES valacyclovir 500 mg tablet 500 mg PO BID PRN Rx Instructions: TAKES NEEDED FOR COLD SORE OUTBREAK montelukast 10 mg tablet 10 mg PO DAILY PRN Rx Instructions: SEASONALLY FOR ALLERGIES AirDuo Digihaler 113 mcg-14 mcg/actuation aero powdr breath act w/sensor 1 inh inhalation BID PRN Rx Instructions: takes seasonally for allergies dexamethasone 6 mg tablet 6 mg PO DAILY PRNQty: 5 0RF ondansetron 4 mg tablet,disintegrating 4 mg PO Q8H PRN (Reason: nausea and vomiting) Qty: 5 0RF acetaminophen 500 mg tablet 1,000 mg PO Q8H PRN (Reason: migraine headache) Qty: 30 0RF albuterol sulfate 90 mcg/actuation HFA aerosol inhaler 2 puff inhalation Q4-6H PRN (Reason: shortness of breath or wheezing) Qty: 8.5 11RF topiramate [Topamax] 25 mg tablet 25 mg PO QDAY Qty: 60 0RF Rx Instructions: Take 25 mg daily for 2 weeks and then 50 mg/2 tablets daily tramadol 50 mg tablet 50 mg PO Q6H PRN (Reason: pain) Qty: 24 0RF Follow Up/Referrals: Ashlee Preston MD [Primary Care Provider] - Stand Alone Forms: [employer] Interactive Info Instructions
--- OUTSIDE RECORDS SUMMARY | 2025-01-14 12:55 | XMS_ITS | Clinical Summary ---
Author Organization [facility] Address [address] [place] [address] Care Team Providers Care Outside Energy Sales Representatives Name Role Phone Ashlee Preston MD Primary Care Provider [phone] Allergies Active Allergy Reactions Criticality Noted Date [...] Department Care Team Description 12/11/[address] [facility] [address] [place], [place] [id number] Glendy Morales NP <No scans attached> 12/09/2024 2:00 PM APPLIANCES SAMPLE MAKER Telemedicine [facility] [place] [address] [address] Akshat Granados MD brain aneurysm 11/27/[address] [facility] [address] [place], [place] [phone] Staff, Other Clinical ANEURYSM REFERRAL 11/22/2024 11:40 AM APPLIANCES SAMPLE MAKER Ancillary Procedure [facility] [place] [facility] [address] [place] [address] 11/22/[address] [facility] [place] [address] [place] [phone] Augustina Luu MBBS Telehealth (weakness) 11/21/2024 Office Visit [facility] [address] [place] [address] Ana Laguna MD Telehealth ([facility] - telephone consult only) from Last 3 [...] on file Legal Sex Female 5:24 AM APPLIANCES SAMPLE MAKER Gender Identity Not on file Sexual Orientation [...] Info) Description 02/10/2025 7:[address] [facility] [address] [place] [address] 02/17/2025 1:00 PM CDT Phone Office Visit [facility] [place] [address] [facility] [address] [place] [phone] Akshat Granados MD [address] [place] [address] [place] [address] [address] 08/20/2025 8:[address] [facility] [address] [place] [address] Health Maintenance Due Date Last Done Comments [...] 08/06/2022 , 08/06/2019, 06/06/2012 (Completed outside of [facility]), Additional history exists COVID-19 vaccine series ( season) 2024 02/08/2021, 01/18/2021 Influenza Vaccine (#1) 2024 Pneumococcal series for age 6-49 Aged Out No longer eligible based on patient's age to complete this topic Procedures Procedure Name Priority Date/Time Associated Diagnosis Comments ECHO TTE COMPLETE WO CONTRAST Routine 11/22/2024 12:30 PM APPLIANCES SAMPLE MAKER Acute left-sided weakness HTN (hypertension) FOOD RUNNER THIN PREP PAP SCREEN IMAGED Routine 08/06/2019 7:40 AM CDT CHOLESTEROL,TOTAL Routine 10/19/2003 9:1 0 AM APPLIANCES SAMPLE MAKER from Last 3 Months or Most Recently Relevant to Health Maintenance Results * ECHO TTE COMPLETE WO CONTRAST (11/22/2024 12:30 PM APPLIANCES SAMPLE MAKER) AORTIC VALVE MEAN PG 2 mmHg EJECTION FRACTION 72 % PEAK TR VELOCITY 2.2 m/s LVEDD 3.3 cm Anatomical Region Laterality Modality Ultrasound 11/22/2024 11:4 8 AM APPLIANCES SAMPLE MAKER Narrative 11/22/2024 12:46 PM APPLIANCES SAMPLE MAKER ECHOCARDIOGRAM MARY STEWART : 1975 49 years Study Date: 11/22/2024 11:48:21 AM Gender: F BP: 101/70 mmHg Height: 163.00 cm BSA: 1.64 m Weight: 60.00 kg Tech: SHAREE Referring MD: AYAH BEGUM Site: [facility] Reading Location: [place]- Patient Location: Inpatient. Procedure: 2D, Color Doppler [...] . This study was interpreted by an [facility] accredited facility. CC: HIM (med records) [facility], Med/Surg - IP [facility]. Final Procedure Note Carroll Luna MD - 11/22/2024 ECHOCARDIOGRAM MARY STEWART : 1975 49 years Study Date: 11/22/2024 11:48:21 AM Gender: F BP: 101/70 mmHg Height: 163.00 cm BSA: 1.64 m Weight: 60.00 kg Tech: SHAREE Referring MD: AYAH BEGUM Site: [facility] Reading Location: Mobile- Patient Location: [...] . This study was interpreted by an [facility] accredited facility. CC: DORCAS (med records) [facility], Med/Surg - IP [facility]. Final us Ayah Begum MD ECHO ORD Final Resu lt * FOOD RUNNER THIN PREP PAP SCREEN IMAGED (08/06/2019 7:40 AM CDT) Case Report Gynecologic Cytology Report Case: [id number] Authorizing Provider: Jose Miguel Sherman PA-C Collected: 08/06/2019 0740 Ordering Location: [facility] Received: 08/06/2019 1728 First Screen: Jamey Peoples Specimen: FOOD RUNNER ThinPrep Vial Screening, Cervical/Vaginal 08/15/2019 2:33 PM CDT [facility] INTERPRETATION/ RESULT NEGATIVE FOR INTRAEPITHELIAL LESION OR MALIGNANCY (NIL) (none) 08/15/2019 2:33 PM CDT [facility] IMEN ADEQUACY Satisfactory for evaluation Endocervical component present 08/15/2019 2:33 PM CDT [facility] HPV REQUEST HPV and PAP 08/15/2019 2:33 PM CDT [facility] Last Pap Date 03/22/2016 08/15/2019 2:33 PM CDT [facility] Last Pap Result NIL 9 2:33 PM CDT [facility] Automated Review Successful 08/15/2019 2:33 PM CDT [facility] Comment:Specimen processed s uccessfully by automated international marketing specialist device, ThinPrep Imaging System, [employer] ANCILLARY TESTING FOOD RUNNER HPV Ordered, Please see separate report 08/15/2019 2:33 PM CDT [facility] Note The pap test is a [...] - [address], [place] [address] and [facility] - [address] [place] [address]; [place] [address] and [facility] - [address]; [place] [address] and [facility] [address]; [place] [address] 08/15/2019 2:33 PM CDT [facility] Other (Cervical/Vagina l) 08/06/2019 7:40 AM CDT 08/06/2019 5:28 PM CDT Jose Miguel Sherman PA-C PATHOLOGY/CYTOLOGY Final Resu lt [facility] [address] [place] [address], [place] * CHOLESTEROL,TOTAL (10/19/2003 9:10 AM APPLIANCES SAMPLE MAKER) CHOLESTEROL,TOT AL 174 110 - 199 mg/dL 10/19/2003 9:10 AM APPLIANCES SAMPLE MAKER Narrative 03/30/2004 7:50 PM CDT Ordered by [...] 10:30 AM 04/11/2013 4:19 PM Care Teams Outside Energy Sales Representatives Relationship Specialty Start Date End Date Ashlee Preston MD [address] [place] [address] PCP - General Emergency Medicine 05/25/21
--- OUTSIDE RECORDS SUMMARY | 2025-01-14 12:55 | XMS_ITS | Clinical Summary ---
Author Organization [facility] Address [address] [place] [address] Care Team Providers Care Manager Loan Name Role Phone Monique Whitehead MD Primary Care Provider Allergies Active Allergy Reactions Criticality Noted Date [...] on file Legal Sex Female 3:18 AM DESK ATTENDANT Gender Identity Not on file Sexual Orientation [...] Advance Directives For more information, please contact: [phone] * Full Code (Latest Code Status on [...] 12:58 PM 07/20/2017 1:32 AM Care Teams Manager Loan Relationship Specialty Start Date End Date Monique Whitehead MD [facility] [address] [place] [address] PCP - General 07/20/17
[2025-01-14] MEDS: 0.9 % SODIUM CHLORIDE 1000 ml 1,000 ML IV ×2 (13:08→15:26)
[2025-01-14 13:22] LABS: Basophils Absolute Auto 0.06 K/uL (0.00-0.30); Eosinophils Absolute Auto 0.25 K/uL (0.00-0.50); Hematocrit 38.9 % (33.0-51.0); Hemoglobin* 12.8 gm/dL (12.0-16.0); Immature Granulocytes Abs Auto 0.01 K/uL (0.00-0.30); Immature Granulocytes Pct Auto 0.2 %; Lymphocytes Absolute Auto 1.34 K/uL (0.90-2.90); Lymphocytes Percent Auto 21.6 % (20-44); Mean Corpuscular HGB Conc 33 gm/dL (32-36); Mean Corpuscular Hemoglobin 32 pg (26-34); Mean Corpuscular Volume 97 fL (80-100); Monocytes Percent Auto 7.6 % (0.0-11.0); Neutrophils Absolute Auto 4.08 K/uL (1.7-7.0); Neutrophils Percent Auto 65.6 % (42.0-72.0); Platelet Count* 326 K/uL (140-440); RDW Coefficient of Variation % 13.6 % (11.5-15.5); Red Blood Count 4.02 m/uL (4.00-5.20); White Blood Count* 6.21 K/uL (4.50-11.00)
[2025-01-14 13:25] LABS: Slide Review Reflex No
[2025-01-14] MEDS: diphenhydrAMINE 50 MG/ML inj 25 MG IVP (13:27)
[2025-01-14] MEDS: METOCLOPRAMIDE HCL 10 MG in 0.9 % SODIUM CHLORIDE 100 ml 100 ML 306 MG IVPB (13:32)
[2025-01-14 13:44] LABS: Albumin* 5.1 g/dL (3.3-5.0); Chloride* 106 mmol/L (96-114)
[2025-01-14 13:45] LABS: Potassium* 4.3 mmol/L (3.6-5.1); Sodium* 141 mmol/L (135-149)
[2025-01-14 13:47] LABS: Blood Urea Nitrogen* 40 mg/dL (5-24); Creatinine* 2.2 mg/dL (0.5-1.5); Est. Creatinine Clearance* 26.71; Estimated Glomerular Filt Rate 27 ml/min
[2025-01-14 13:48] LABS: Alanine Aminotransferase* 28 U/L (4-35); Alkaline Phosphatase* 71 U/L (40-150); Anion Gap 14 mEq/L (7-15); Aspartate Amino Transferase* 26 U/L (12-35); Bilirubin Total* 0.6 mg/dL (0.1-1.5); Calcium* 9.5 mg/dL (8.4-10.6); Carbon Dioxide* 21 mmol/L (20-32); Glucose* 109 mg/dL (60-115); Total Protein* 7.4 g/dL (6.0-8.3)
[2025-01-14 13:58] LABS: C Reactive Protein* < 0.5 mg/dL (0.5-1.0); Ethanol* < 0.01 % (0.01-0.03)
[2025-01-14 14:09] VITALS: BP 81/55; PULSE 71; RESP 18; TEMP 36.6; O2SAT 99
[2025-01-14 14:39] LABS: Appearance Urine Clear (Clear); Bilirubin Urine Negative (Negative); Blood Urine Negative (Negative); Color Urine Yellow (Yellow); Glucose Urine Negative (Negative); Ketones Urine Negative (Negative); Leukocyte Esterase Urine Negative (Negative); Nitrite Urine Negative (Negative); Protein Urine Negative (Negative); Specific Gravity Urine <= 1.005 (1.000-1.030); Urobilinogen Urine 0.2 (0.2-1.0); pH Urine 5.5 (5.0-8.5)
[2025-01-14 15:03] LABS: Bacteria Urine Few; RBC Urine 0-2 (0-2); Squamous Epithelial Cell Urine Few (None-Few); WBC Urine 0-2 (0-5)
[2025-01-14 15:21] VITALS: BP 94/75
[2025-01-14 15:41] VITALS: BP 83/62
[2025-01-14 16:20] VITALS: BP 90/62; PULSE 64; RESP 18; TEMP 36.4; O2SAT 99
[2025-01-14 16:20] LABS: Chloride* 112 mmol/L (96-114); Potassium* 4.4 mmol/L (3.6-5.1); Sodium* 141 mmol/L (135-149)
[2025-01-14 16:23] LABS: Anion Gap 8 mEq/L (7-15); Blood Urea Nitrogen* 35 mg/dL (5-24); Calcium* 8.3 mg/dL (8.4-10.6); Carbon Dioxide* 21 mmol/L (20-32); Creatinine* 1.7 mg/dL (0.5-1.5); Est. Creatinine Clearance* 34.57; Estimated Glomerular Filt Rate 37 ml/min; Glucose* 82 mg/dL (60-115)
== END 2025-01-14 17:24 | disposition home or self-care (01) ==
PROVIDERS: Emergency Provider Family Medicine; PCP Emergency Medicine
DX: I95.2 Hypotension due to drugs (principal); R94.4 Abnormal results of kidney function studies
CPT/HCPCS: 36415; 80048; 80053; 81001; 82077; 85025; 86140; 87086; 96365; 96375; 99284; J1200; J2765; J7030